=== PATIENT | female | born 1950 | race Caucasian/White ===

== ENCOUNTER 2018-10-31 09:41 | Emergency (ER) | payer OTHER, MEDICAID ==
[2018-10-31] MEDS ORDERED: ONDANSETRON 4 MG/2 ML VIAL IVP ONE (10:08)
[2018-10-31] MEDS ORDERED: NS 1,000 ML IV ONE (10:08)
[2018-10-31 10:16] LABS: PLATELET COUNT 244 10^3/uL (150-400)
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
[2018-10-31] MEDS ORDERED: ACETAMINOPHEN 325 MG TAB PO ONE (10:54)
[2018-10-31 12:06] VITALS: BP 157/86
== END 2018-10-31 12:07 | disposition home or self-care (01) ==
DX: E86.0 Dehydration (principal); R11.2 Nausea with vomiting, unspecified; K29.00 Acute gastritis without bleeding; R51 Headache; E11.9 Type 2 diabetes mellitus without complications
CPT/HCPCS: 96374; 99284; J2405

== ENCOUNTER 2018-11-02 09:28 | Inpatient (IN) | payer OTHER, MEDICAID ==
[2018-11-02] MEDS ORDERED: ONDANSETRON 4 MG/2 ML VIAL ONE ×2 (09:44→13:07)
[2018-11-02] MEDS ORDERED: NS 1,000 ML IV ONE ×4 (09:49→11:18)
[2018-11-02] MEDS ORDERED: ONDANSETRON 4 MG/2 ML VIAL IVP ONE (09:49)
[2018-11-02] MEDS ORDERED: METOCLOPRAMIDE 10 MG/2 ML VIAL IVP ONE (09:53)
[2018-11-02] MEDS ORDERED: FAMOTIDINE 20 MG/NACL 50 ML IV ONE (09:53)
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
[2018-11-02 10:07] LABS: PLATELET COUNT 278 10^3/uL (150-400)
[2018-11-02] MEDS ORDERED: INSULIN REGULAR HUMAN 100 UNIT, COSIGN. REQUIRED 1 EA in NS 100 ML IV ONE (10:18)
[2018-11-02] MEDS ORDERED: NS 500 ML IV ONE ×2 (10:30)
[2018-11-02] MEDS ORDERED: D10W 1,000 ML IV SCH (10:30)
[2018-11-02] MEDS ORDERED: RN:ENTER POTASSIUM ICU PROTOCOL ON WORKLIST MISC ONE (10:30)
[2018-11-02] MEDS ORDERED: NS 1,000 ML IV SCH ×2 (10:30→14:00)
[2018-11-02] MEDS ORDERED: D50W 25 GM/50 ML SYR IVP PRN ×2 (10:30→19:24)
[2018-11-02] MEDS ORDERED: IOPAMIDOL (ISOVUE-300) 100 ML BTL ONE ×2 (10:32→14:56)
[2018-11-02] MEDS: POTASSIUM Cl (KCl) 100 ML IV SCH ×6 (10:38→23:29)
[2018-11-02] MEDS ORDERED: INSULIN REGULAR HUMAN 100 UNIT in NS 100 ML IV SCH ×2 (14:00→14:30)
--- NOTE | 2018-11-02 14:23 | PDGENHP ---
History and Physical - Chief Complaint Nausea - History of Present Illness I was asked by Dr. Jolie Gutierrez of [facility] to evaluate this patient for ICU care and lung mass. Trav is a very pleasant 68-year-old female with type 2 diabetes who re-presented to emergency department with nausea vomiting and headaches. She reports and ability to take p.o. And elevated blood glucoses although she has not recently checked in. She recent prescribed a prescription for glyburide. She is a [place] patient, was treated a couple months ago for pneumonia. She denies active respiratory symptoms chest pain, fevers, chills, cough. She is a nonsmoker History Information - Allergies/Home Medication List Allergies/Adverse Reactions: erythromycin base Allergy (Verified 11/02/18 09:38) nitrous oxide Allergy (Verified 11/02/18 09:38) Home Medications: metFORMIN HCL [Metformin HCl ER] 500 mg PO BIDMEAL 10/31/18 [Last Taken 07:00] I have personally reviewed and updated: family history, medical history, social history, surgical history - Past Medical History Additional medical history: Type 2 diabetes, - Surgical History Reports: no pertinent surgical hx - Family History Additional family history: No history of lung mass - Social History Smoking Status: Never smoked Review of Systems Review of Systems: ROS: 10pt was reviewed & negative except for what was stated in HPI & below Physical Exam Physical Exam: Temp Pulse Resp BP Pulse Ox 37.7 C 105 H 16 154/75 H 97 11/02/18 13:16 11/02/18 14:00 11/02/18 14:00 11/02/18 14:00 11/02/18 14:00 Lab Data & Imaging Review 11/02/18 09:45 11/02/18 11:15 WBC 18.69 10^3/uL (3.80-9.50) H 11/02/18 09:45 RBC 5.60 10^6/uL (4.18-5.33) H 11/02/18 09:45 Hgb 15.8 g/dL (12.6-16.3) 11/02/18 09:45 POC Hgb 16.3 gm/dL (12.6-16.3) 11/02/18 09:51 Hct 44.2 % (38.0-47.0) 11/02/18 09:45 POC Hct 48 % (38-47) H 11/02/18 09:51 MCV 78.9 fL (81.5-99.8) L 11/02/18 09:45 MCH 28.2 pg (27.9-34.1) 11/02/18 09:45 MCHC 35.7 g/dL (32.4-36.7) 11/02/18 09:45 RDW 14.0 % (11.5-15.2) 11/02/18 09:45 Plt Count 278 10^3/uL (150-400) 11/02/18 09:45 MPV 12.3 fL (8.7-11.7) H 11/02/18 09:45 Neut % (Auto) Not Reported 11/02/18 09:45 Lymph % (Auto) Not Reported 11/02/18 09:45 [place] % (Auto) Not Reported 11/02/18 09:45 Eos % (Auto) Not Reported 11/02/18 09:45 Baso % (Auto) Not Reported 11/02/18 09:45 Nucleat RBC Rel Count Not Reported 11/02/18 09:45 Absolute Neuts (auto) Not Reported 11/02/18 09:45 Absolute Lymphs (auto) Not Reported 11/02/18 09:45 Absolute Monos (auto) Not Reported 11/02/18 09:45 Absolute Eos (auto) Not Reported 11/02/18 09:45 Absolute Basos (auto) Not Reported 11/02/18 09:45 Absolute Nucleated RBC Not Reported 11/02/18 09:45 Immature Gran % Not Reported 11/02/18 09:45 Seg Neutrophils % 89.0 % 11/02/18 09:45 Band Neutrophils % 0.0 % 11/02/18 09:45 Lymphocytes % 7.0 % 11/02/18 09:45 Monocytes % 4.0 % 11/02/18 09:45 Eosinophils % 0.0 % 11/02/18 09:45 Basophils % 0.0 % 11/02/18 09:45 Metamyelocytes % 0.0 % 11/02/18 09:45 Myelocytes % 0.0 % 11/02/18 09:45 Promyelocytes % 0.0 % 11/02/18 09:45 Blast Cells % 0.0 % 11/02/18 09:45 Immature Gran # Not Reported 11/02/18 09:45 Absolute Seg Neuts 16.06 10^3/uL (1.70-6.50) H 11/02/18 09:45 Absolute Band Neuts 0.00 10^3/uL (0.00-0.70) 11/02/18 09:45 Absolute Lymphocytes 1.26 10^3/uL (1.00-3.00) 11/02/18 09:45 Absolute Monocytes 0.72 10^3/uL (0.30-0.80) 11/02/18 09:45 Absolute Eosinophils 0.00 10^3/uL (0.03-0.40) L 11/02/18 09:45 Absolute Basophils 0.00 10^3/uL (0.02-0.10) L 11/02/18 09:45 Absolute Metamyelocyte 0.00 10^3/mL (0.00-0.00) 11/02/18 09:45 Absolute Myelocytes 0.00 10^3/mL (0.00-0.00) 11/02/18 09:45 Absolute Promyelocytes 0.00 10^3/uL (0.00-0.00) 11/02/18 09:45 Absolute Plasma Cells 0.00 10^3/uL (0.00-0.00) 11/02/18 09:45 Nucleated RBCs 0 /100 WBC (0-0) 11/02/18 09:45 RBC/WBC/PLT Morphology NORMAL (NORMAL) 11/02/18 09:45 Absolute Blast Cells 0.00 10^3/uL (0.00-0.00) 11/02/18 09:45 Plasma Cells % 0.0 % 11/02/18 09:45 Platelet Estimate ADEQUATE (ADEQ) 11/02/18 09:45 Puncture Site VENOUS 11/02/18 14:00 Patient Temperature 37.6 DEGREES 11/02/18 14:00 VBG pH 7.38 (7.31-7.42) 11/02/18 14:00 VBG HCO3 17 mEQ/L (22-26) L 11/02/18 14:00 VBG Total CO2 18 mEq/L (21-27) L 11/02/18 14:00 VBG O2 Saturation 88 % (65-75) H 11/02/18 14:00 VBG Base Excess -6.2 mEq/L (-2.5-2.5) L 11/02/18 14:00 Mixed VBG pCO2 30 mmHg (40-44) L 11/02/18 14:00 Mixed VBG pO2 52 mmHG (35-40) H 11/02/18 14:00 POC Sodium 134 mEq/L (135-145) L 11/02/18 09:51 Sodium 134 mEq/L (135-145) L 11/02/18 11:15 POC Potassium 3.7 mEq/L (3.3-5.0) 11/02/18 09:51 Potassium 4.1 mEq/L (3.5-5.2) 11/02/18 11:15 POC Chloride 99 mEq/L (97-110) 11/02/18 09:51 Chloride 101 mEq/L (97-110) 11/02/18 11:15 Carbon Dioxide 16 mEq/l (22-31) L 11/02/18 11:15 POC Total CO2 18 mEq/L (22-31) L 11/02/18 09:51 Anion Gap 17 mEq/L (6-14) H 11/02/18 11:15 POC BUN 29 mg/dL (7-23) H 11/02/18 09:51 BUN 25 mg/dL (7-23) H 11/02/18 11:15 Creatinine 0.6 mg/dL (0.6-1.0) 11/02/18 11:15 POC Creatinine 0.5 mg/dL (0.6-1.0) L 11/02/18 09:51 Estimated GFR > 60 11/02/18 11:15 Glucose 444 mg/dL (70-100) H 11/02/18 11:15 POC Glucose 321 mg/dL (70-100) H 11/02/18 12:41 Calcium 9.7 mg/dL (8.5-10.4) 11/02/18 11:15 Total Bilirubin 1.4 mg/dL (0.1-1.4) 11/02/18 09:45 Conjugated Bilirubin 0.4 mg/dL (0.0-0.5) 11/02/18 09:45 Unconjugated Bilirubin 1.0 mg/dL (0.0-1.1) 11/02/18 09:45 AST 9 IU/L (14-46) L 11/02/18 09:45 ALT 27 IU/L (9-52) 11/02/18 09:45 Alkaline Phosphatase 93 IU/L (38-126) 11/02/18 09:45 Total Protein 7.5 g/dL (6.3-8.2) 11/02/18 09:45 Albumin 4.4 g/dL (3.5-5.0) 11/02/18 09:45 Lipase 68 IU/L (23-300) 11/02/18 09:45 Beta-Hydroxybutyrate 4.45 mmol/L (0.02-0.27) H 11/02/18 11:15 Urine Color PALE YELLOW 11/02/18 10:00 Urine Appearance CLEAR 11/02/18 10:00 Urine pH 6.0 (5.0-7.5) 11/02/18 10:00 Ur Specific [place] 1.027 (1.002-1.030) 11/02/18 10:00 Urine Protein NEGATIVE (NEGATIVE) 11/02/18 10:00 Urine Ketones 2+ (NEGATIVE) H 11/02/18 10:00 Urine Blood NEGATIVE (NEGATIVE) 11/02/18 10:00 Urine Nitrate NEGATIVE (NEGATIVE) 11/02/18 10:00 Urine Bilirubin NEGATIVE (NEGATIVE) 11/02/18 10:00 Urine Urobilinogen NEGATIVE EU (0.2-1.0) 11/02/18 10:00 Ur Leukocyte Esterase NEGATIVE (NEGATIVE) 11/02/18 10:00 Urine RBC 1-3 /hpf (0-3) 11/02/18 10:00 Urine WBC 1-3 /hpf (0-3) 11/02/18 10:00 Ur Epithelial Cells TRACE /lpf (NONE-1+) 11/02/18 10:00 Urine Glucose 3+ (NEGATIVE) H 11/02/18 10:00 Visualized and Interpreted imaging results: Yes Interpretation: CT abdomen pelvis with pleural base consolidation in left lower lobe. No other ground-glass or infiltrates Assessment & Plan Assessment: 68-year-old female admitted with mild DKA and leukocytosis and found to have a pleural based lung mass concerning for infection. Imaging findings may be residual changes from recent pneumonia. However given diabetes and relative immunocompromise state she has a risk for invasive fungal infections. Given leukocytosis and diabetes she warrants further workup. # lung mass. Differential as above. # DKA # anion gap metabolic acidosis # leukocytosis. stress response vs infection Plan: PLAN # dedicated CT chest with contrast # B,D glucan, and aspergillus galactomannan # will plan on performing bronchoscopy with BAL tomorrow # avoid antibiotics until after bronchoscopy unless patient decompensates # DKA care
[2018-11-02] MEDS ORDERED: D10W 1,000 ML IV PRN (14:30)
--- NOTE | 2018-11-02 14:58 | GHP ---
[f rep st] HISTORY AND PHYSICAL DATE OF ADMISSION: 11/02/2018 CHIEF COMPLAINT: Nausea and vomiting. HISTORY: Cyndy is a 68-year-old female with type 2 diabetes only on Metformin presenting with 2 days of nausea and vomiting. The vomiting started on Thursday night. She was seen in urgent care an d 1 previous visit in the ER and was sent home. She re-presented today and now appears to be in DKA. Now on an IV insulin drip and admitting to ICU. She describes pain in her pelvis radiating down to her knees. Her CT scan of the abdomen was negative, but did incidentally catch a possible pulmonary abscess in her lung. The patient was diagnosed with pneumonia in August. She took a course of antibiotics. Since that time, she has lost a considerable amount of weight. She blames the weight loss on decreased appetite due to these antibiotics. She, otherwise, feels like she has had a full recovery from the pneumonia . She never had a followup chest x-ray as she was seen in urgent care, they listened to her lungs an d they sounded clear and told her she was fine. She occasionally will have night sweats. PAST MEDICAL HISTORY: Diabetes type 2 diagnosed 2006. MEDICATIONS: Please see computerized record for full detailed list. ALLERGIES: To erythromycin. SOCIAL HISTORY: Never been a smoker. She lives alone with her cat. No alcohol. 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 REVIEW OF SYSTEMS: A complete review of systems was obtained and negative regarding constitutional, HEENT, GI, pulmonary, cardiovascular, , hematology, skin, musculoskeletal, endocrine, and psychiatr ic, except for positives and negatives as in HPI. FAMILY HISTORY: Reviewed and noncontributory to presenting complaint. PHYSICAL EXAMINATION: GENERAL: Well-developed, well-nourished female, in no distress. VITAL SIGNS: Temperature is 36.7, pulse 108, blood pressure 150/106, saturating 97% on room air. EYES: Normal c onjunctivae. Pupils are equal, round, react light. ENT: Normal ears and nose. Hearing intact. No rmal teeth. Oropharynx moist. NECK: Trachea midline. No thyromegaly. CHEST: Normal respiratory effort. Lungs are clear to auscultation bilaterally. CARDIOVASCULAR: Regular rate and rhythm. No murmur. No extremity edema. ABDOMEN: Soft, nontender. No hepatosplenomegaly. SKIN: Warm, dry, a nd intact without rash. MUSCULOSKELETAL: No cyanosis or clubbing. Strength is 5/5 upper and lower extremities. NEUROLOGIC: Cranial nerves intact. Normal sensation to light touch. PSYCH: Alert an d oriented x3. Normal affect. Normal judgment. Normal memory. LABORATORY DATA: White count 18.69, hematocrit 44.2, platelets 278. Sodium 134, potassium 4.1, chlo ride 101, bicarb 16. Anion gap on presentation was 21. BUN 25, creatinine 0.6, glucose 521. Beta h ydroxybutyrate is 4.45. CT scan of the abdomen shows a left lower lobe pleural-based mass, may represent pneumonia with centr al necrosis or intrapulmonary abscess versus loculated empyema. Malignancy not ruled out. ASSESSMENT/PLAN: 1. Diabetic ketoacidosis. She is now on an IV insulin drip and will continue per DKA protocol with IV fluid and serial labs. We will likely need to discharge her on insulin injections and can be clar ified as an outpatient whether or not she may have an element of type 1 diabetes. 2. Pulmonary abscess. I reviewed her CT scan with Dr. Jade and Pulmonary Medicine will see her in consultation. He is recommending a full dedicated CT chest. He thinks infection is more likely t bermudez malignancy. He is recommending a prolonged course of antibiotics and then repeat CT scan. We wi ll also ask Infectious Disease to see her in consultation to assist with management. We will make he r n.p.o. after midnight for possible bronch in the morning. We will check blood cultures and an HIV. ADMISSION STATUS: We will admit to inpatient. She is critically ill on presentation and meets inpat ient criteria. CODE STATUS: Full. DVT PROPYLAXIS: We will prescribe Lovenox, but we will hold until after bronchoscopy. /[id number]/MODL
[2018-11-02] MEDS ORDERED: PROTOCOL POTASSIUM 1 DOSE MISC PRN (15:27)
--- NOTE | 2018-11-02 15:39 | PDMN ---
Medical Necessity Medical necessity: [facility] M130 diabetes; Diabetic ketoacidosis that requires inpatient management as indicated by ALL of the following: -Hyperglycemia (eg, plasma glucose greater than 200 mg/dL -- ( 521 ). -Ketonuria or ketonemia (eg , serum beta hydroxybutyrate greater than 3 mmol/L)- ( 4.45 ). -Acidosis (eg, arterial or venous pH less than 7.30)- (-VBG 7.24). -Inpatient management appropriate as indicated by 1 or more of the following. -Anion gap greater than 12-- (21). . Pt on IV insulin drip per DKA protocol. IV fluids and serial labs. also with pulm abscess noted on CT. consult pend.
[2018-11-02] MEDS: ACETAMINOPHEN 325 MG TAB PO PRN (15:40)
[2018-11-02] MEDS: ONDANSETRON 4 MG/2 ML VIAL IVP PRN (18:30)
[2018-11-02] MEDS: INSULIN GLARGINE 100 UNITS/ML UNIT SC SCH (18:59)
[2018-11-02] MEDS ORDERED: POTASSIUM CL 20 MEQ TAB PO ONE (19:00)
[2018-11-02] MEDS: INSULIN LISPRO 100 UNIT/ML SC SCH (21:03)
[2018-11-03] MEDS: ONDANSETRON 4 MG/2 ML VIAL IVP PRN (02:12)
[2018-11-03] MEDS ORDERED: hydrALAZINE 25 MG TAB PO PRN ×2 (04:05→04:13)
[2018-11-03] MEDS ORDERED: hydrALAZINE 20 MG/ML VIAL IVP PRN (04:15)
[2018-11-03 05:43] LABS: PLATELET COUNT 244 10^3/uL (150-400)
[2018-11-03] MEDS: ACETAMINOPHEN 325 MG TAB PO PRN (06:28)
[2018-11-03 07:30] LABS: HIV TYPE 1 AND 2 NEGATIVE (NEGATIVE)
[2018-11-03] MEDS ORDERED: INSULIN LISPRO 100 UNIT/ML SC SCH (08:00)
[2018-11-03] MEDS ORDERED: PROTOCOL POTASSIUM 1 DOSE MISC PRN (08:17)
[2018-11-03] MEDS ORDERED: POTASSIUM CL 10 MEQ TAB PO ONE ×2 (08:20→11:45)
[2018-11-03] MEDS ORDERED: POTASSIUM Cl (KCl) 40 MEQ in NS 1,000 ML IV ONE (09:00)
[2018-11-03] MEDS ORDERED: POTASSIUM CL 20 MEQ TAB PO ONE (09:00)
[2018-11-03] MEDS ORDERED: ENOXAPARIN 40 MG/0.4 ML SYR SC SCH (09:00)
[2018-11-03] MEDS: INSULIN LISPRO 100 UNIT/ML SC SCH ×3 (09:17→18:22)
[2018-11-03] MEDS: INSULIN REGULAR HUMAN 100 UNIT in NS 100 ML IV SCH ×2 (09:18→14:35)
[2018-11-03] MEDS: INSULIN GLARGINE 100 UNITS/ML UNIT SC SCH (09:55)
--- NOTE | 2018-11-03 10:22 | PDINTPN ---
Osteopathic Neurologist Progress Note Assessment/Plan: 68-year-old female admitted with mild DKA and leukocytosis and found to have a pleural based lung mass concerning for infection. Imaging findings may be residual changes from recent pneumonia. However given diabetes and relative immunocompromise state she has a risk for invasive fungal infections. Given leukocytosis and diabetes she warrants further workup. Malignancy is less likely. # lung mass. Differential as above. Patient declines inpatient bronchoscopy # DKA # anion gap metabolic acidosis # hypokalemia, severe # leukocytosis. stress response vs infection Plan: PLAN # declines inpatient bronchoscopy and other diagnostic interventions # given interval improvement in leukocytosis without antibiotics suggest against antibiotics or antifungals without definitive diagnosis or clinical worsening # suggest repeat CT chest in 4-6 weeks as outpatient to evaluate for interval change # follow-up B,D glucan, and aspergillus galactomannan # aggressive potassium repletion # will need to cautiously continue insulin drip per DKA # patient to follow up with Munir as an outpatient Subjective: Gap re opened yesterday, worsening hypokalemia, insulin gtt restarted. Patient declines bronchoscopy stating that she has too much to do today. We discussed the risks, benefits, of not pursuing a definitive diagnosis of her lung mass. Objective: Vital Signs Temp Pulse Resp BP Pulse Ox 36.9 C 97 18 179/79 H 98 11/03/18 08:00 11/03/18 08:00 11/03/18 08:00 11/03/18 08:00 11/03/18 08:00 Laboratory Results 11/03/18 05:30 11/02/18 11/03/18 11/04/18 05:59 05:59 05:59 Intake Total 2963.8 Output Total 1400 900 Balance 1563.8 -900 Physical Exam - Physical Exam General Appearance: no apparent distress, cachetic EENT: PERRL/EOMI, normal ENT inspection Neck: non-tender, full range of motion, supple Respiratory: chest non-tender, lungs clear, normal breath sounds Cardiac/Chest: normal peripheral pulses, regular rate, rhythm, No edema Abdomen: non-tender, soft, No distended, No guarding Back: Normal inspection Skin: normal color, warm/dry, No cyanosis, No diaphoresis Extremities: normal range of motion, non-tender, normal inspection Neuro/Psych: no motor/sensory deficits, alert, other (Odd affect) ICD10 Worksheet Patient Problems: Problems Problem Status Onset DKA (diabetic ketoacidoses) Acute Nausea and vomiting Acute Dehydration Acute Vomiting Acute
[2018-11-03] MEDS: POTASSIUM Cl (KCl) 100 ML IV SCH ×6 (11:22→22:30)
[2018-11-03] MEDS ORDERED: NS 1,000 ML IV SCH (11:45)
[2018-11-03] MEDS: ENOXAPARIN 40 MG/0.4 ML SYR SC SCH (11:57)
[2018-11-03] MEDS ORDERED: POTASSIUM Cl (KCl) 40 MEQ in NS 1,000 ML IV SCH (12:00)
[2018-11-03] MEDS ORDERED: LR 1,000 ML IV SCH (13:00)
[2018-11-03] MEDS ORDERED: D5W NS W/ 20 KCl/L 1,000 ML IV SCH (16:30)
[2018-11-03] MEDS: LORazepam 1 MG TAB PO PRN ×2 (16:36→21:14)
--- NOTE | 2018-11-03 21:29 | HOSPPROG ---
Hospitalist Progress Note Assessment/Plan: * DKA -difficult case - gap re-opened and back on insulin gtt -continue IV insulin, D5NS and serial chem7 * Hypokalemia - severe -replete * Pleural based mass vs infection (necrosis vs. abscess vs. empyema) -refused bronch -consider empiric antibiotics * Anxiety -ativan prn Subjective: Very anxious to leave, refused bronch Objective: Vital Signs Temp Pulse Resp BP Pulse Ox 37.3 C 110 H 25 H 166/97 H 98 11/03/18 20:16 11/03/18 20:16 11/03/18 20:16 11/03/18 20:16 11/03/18 20:16 Laboratory Results 11/03/18 05:30 11/03/18 20:07 11/02/18 11/03/18 11/04/18 05:59 05:59 05:59 Intake Total 2963.8 2064 Output Total 1400 2500 Balance 1563.8 -436 CT chest - pleural based mass as above d/w dr núñez regarding DKA tx - Physical Exam Constitutional: no apparent distress, appears nourished, not in pain Cardiovascular: regular rate and rhythym, no murmur, rub, or gallop Respiratory: no respiratory distress, no rales or rhonchi, clear to auscultation Gastrointestinal: normoactive bowel sounds, soft, non-tender abdomen, no palpable masses Skin: no rashes or abrasions, no fluctuance, no induration Neurologic: AAOx3, sensation intact bilaterally Psychiatric: interacting appropriately, not anxious, not encephalopathic, thought process linear ICD10 Worksheet Patient Problems: Problems Problem Status Onset DKA (diabetic ketoacidoses) Acute Nausea and vomiting Acute Dehydration Acute Vomiting Acute
[2018-11-03] MEDS ORDERED: IBUPROFEN 600 MG TAB PO ONE (22:39)
[2018-11-03] MEDS: D10W 1,000 ML IV SCH (23:33)
[2018-11-04] MEDS: LORazepam 1 MG TAB PO PRN ×2 (01:33→06:47)
[2018-11-04 04:43] LABS: PLATELET COUNT 279 10^3/uL (150-400)
[2018-11-04] MEDS: INSULIN REGULAR HUMAN 100 UNIT in NS 100 ML IV SCH (05:08)
[2018-11-04] MEDS: POTASSIUM Cl (KCl) 100 ML IV SCH ×7 (06:33→23:25)
[2018-11-04] MEDS ORDERED: POTASSIUM CL 10 MEQ TAB PO ONE (07:46)
[2018-11-04] MEDS ORDERED: POTASSIUM CL 20 MEQ TAB PO ONE (08:13)
--- NOTE | 2018-11-04 08:19 | PDINTPN ---
High Pressure Firer Progress Note Assessment/Plan: 68-year-old female admitted with mild DKA and leukocytosis and found to have a pleural based lung mass concerning for infection. Imaging findings may be residual changes from recent pneumonia. However given diabetes and relative immunocompromise state she has a risk for invasive fungal infections. Given leukocytosis and diabetes she warrants further workup. Malignancy is less likely. # lung mass. Differential as above. Aspergillus galactomannan negative, B,D glucan negative. Patient declines inpatient bronchoscopy # DKA, gap reopened due to poor p.o. Intake with a component starvation ketoacidosis # encephalopathy. Multifactorial. Mild underlying cognitive impairment plus critical illness plus benzodiazepine # hyponatremia. Multifactorial. # anion gap metabolic acidosis # hypokalemia, severe # leukocytosis. stress response vs infection PLAN # declines inpatient bronchoscopy and other diagnostic interventions # given interval improvement in leukocytosis without antibiotics suggest against antibiotics or antifungals without definitive diagnosis or clinical worsening # suggest repeat CT chest in 4-6 weeks as outpatient to evaluate for interval change # change IV fluids from D10 to D5 NS # increase glargine stop, stop drip # repeat BMP 4 hr after stopping drip # aggressive potassium repletion # avoid benzos # patient to follow up with Munir as an outpatient 11/04/18 15:33 Subjective: back on insulin overnight, ativan early this AM, still with hypokalemia, continues to decline work up of lung mass. tolerating clear liquid diet. No fevers, chills Objective: Vital Signs Temp Pulse Resp BP Pulse Ox 36.5 C 98 24 H 172/94 H 93 11/04/18 08:00 11/04/18 08:00 11/04/18 06:00 11/04/18 08:00 11/04/18 08:00 Laboratory Results 11/04/18 04:20 11/04/18 04:20 11/03/18 11/04/18 11/05/18 05:59 05:59 05:59 Intake Total 2963.8 3607.6 Output Total 1400 3500 425 Balance 1563.8 107.6 -425 Physical Exam - Physical Exam General Appearance: cachetic, other (Somnolent arousable) EENT: normal ENT inspection, pharynx normal, No scleral icterus (L) Respiratory: chest non-tender, lungs clear, normal breath sounds Cardiac/Chest: normal peripheral pulses, regular rate, rhythm, No edema Abdomen: normal bowel sounds, non-tender Back: Normal inspection Skin: normal color, warm/dry, No cyanosis Extremities: normal range of motion, non-tender Neuro/Psych: other (Somnolent, arousable, confused poorly following commands, no focal deficits) ICD10 Worksheet Patient Problems: Problems Problem Status Onset DKA (diabetic ketoacidoses) Acute Nausea and vomiting Acute Dehydration Acute Vomiting Acute
[2018-11-04] MEDS: ENOXAPARIN 40 MG/0.4 ML SYR SC SCH (08:32)
[2018-11-04] MEDS ORDERED: PROTOCOL K PHOSPHATE 1 DOSE IV PRN (08:33)
[2018-11-04] MEDS: D10W 1,000 ML IV SCH (08:38)
[2018-11-04] MEDS ORDERED: K PHOS 20 MMOL in D5W 250 ML IV ONE (09:00)
[2018-11-04] MEDS: INSULIN GLARGINE 100 UNITS/ML UNIT SC SCH (10:09)
[2018-11-04] MEDS ORDERED: INSULIN GLARGINE 100 UNITS/ML UNIT SC ONE (10:33)
[2018-11-04] MEDS: INSULIN LISPRO 100 UNIT/ML SC SCH ×4 (10:51→18:33)
[2018-11-04] MEDS ORDERED: POTASSIUM Cl (KCl) 40 MEQ in D5W NS 1,000 ML IV SCH (11:30)
--- NOTE | 2018-11-04 13:19 | ASMTCASEMG ---
Living Arrangements What is your living Answers: Alone arrangement? Who do you live with? Type Of Residence What kind of residence do Answers: Apartment you live in? Discharge Plan Comments Coordination Status Comments Notes: Patient is a 68yo single female with Type II diabetes only on Metformin presenting with 2 days of nausea and vomiting. Patient has been admitted for diabetic ketoacidosis, pulmonary abscess. Patient lives at [facility] in independent living. PT/OT have been ordered for the patient. D/C plan TBD.CM will follow. Date Signed: 11/04/2018 01:18 PM Electronically Signed By:Randa Durbin LCSW
--- NOTE | 2018-11-04 13:28 | ASMTCMCOM ---
CM Note CM Note Notes: Spoke with [facility] who called about patient's progress. They would like to stay informed since the patient is in independent living and may need a higher level of care. Roma ([phone]) is the resident coordinator and public health social worker and contact at [facility]. PT is recommending home health care. Patient has [place] insurance and so we will need to coordinate with [facility] ([phone]) home health care. Patient is delirious today so the conversation will have to happen at a later date. CM will follow. Date Signed: 11/04/2018 01:27 PM Electronically Signed By:Randa Durbin LCSW
--- NOTE | 2018-11-04 14:34 | HOSPPROG ---
Hospitalist Progress Note Assessment/Plan: * DKA -difficult case - gap re-opened and back on insulin gtt -try again to transition to SQ Lovenox -d/w patient's close friend - insulin recommended in past and she refused * Hypokalemia - severe -replete * Pleural based mass vs infection (necrosis vs. abscess vs. empyema) -refused bronch -consider empiric antibiotics * Toxic/metabolic encephalopathy -extreme agitation last night - got ativan - now sedated -per friend she has undiagnosed slight schizophrenia -very paranoid - frequently refuses medical recommendations * Urinary retention - >1L in bladder -now with baez * HTN -start lisinopril Subjective: Very sedated but arousable Objective: Vital Signs Temp Pulse Resp BP Pulse Ox 36.4 C 108 H 22 H 177/99 H 99 11/04/18 12:00 11/04/18 14:00 11/04/18 14:00 11/04/18 14:00 11/04/18 14:00 Laboratory Results 11/04/18 04:20 11/04/18 09:30 11/03/18 11/04/18 11/05/18 05:59 05:59 05:59 Intake Total 2963.8 3607.6 Output Total 1400 3500 1550 Balance 1563.8 107.6 -[address] Jade regarding ICU care tele reivewed - NSR - Physical Exam Constitutional: no apparent distress, appears nourished, not in pain Cardiovascular: regular rate and rhythym, no murmur, rub, or gallop Respiratory: no respiratory distress, no rales or rhonchi, clear to auscultation Gastrointestinal: normoactive bowel sounds, soft, non-tender abdomen, no palpable masses Neurologic: No AAOx3 Psychiatric: encephalopathic, poor insight, poor judgement, poor memory, No interacting appropriately, No agitated ICD10 Worksheet Patient Problems: Problems Problem Status Onset DKA (diabetic ketoacidoses) Acute Nausea and vomiting Acute Dehydration Acute Vomiting Acute
[2018-11-04] MEDS ORDERED: hydrALAZINE 20 MG/ML VIAL IVP PRN (14:37)
[2018-11-04] MEDS ORDERED: IBUPROFEN 600 MG TAB PO PRN (14:43)
[2018-11-04] MEDS: ACETAMINOPHEN 325 MG TAB PO PRN (20:21)
[2018-11-05] MEDS ORDERED: OLANZapine 2.5 MG TAB PO ONE ×2 (02:03→04:33)
[2018-11-05] MEDS ORDERED: POTASSIUM CL 10 MEQ TAB PO ONE (07:25)
[2018-11-05 07:48] LABS: PLATELET COUNT 302 10^3/uL (150-400)
[2018-11-05] MEDS: LISINOPRIL 10 MG TAB PO SCH (08:11)
[2018-11-05] MEDS: INSULIN GLARGINE 100 UNITS/ML UNIT SC SCH (08:11)
[2018-11-05] MEDS: ENOXAPARIN 40 MG/0.4 ML SYR SC SCH (08:11)
[2018-11-05] MEDS: INSULIN LISPRO 100 UNIT/ML SC SCH (08:11)
[2018-11-05] MEDS ORDERED: INSULIN GLARGINE 100 UNITS/ML UNIT SC ONE (08:23)
--- NOTE | 2018-11-05 08:28 | PDINTPN ---
Pharmacist Per Diem Progress Note Assessment/Plan: ERROR. disregard Objective: Vital Signs Temp Pulse Resp BP Pulse Ox 36.3 C 127 H 48 H 194/113 H 98 11/05/18 07:29 11/05/18 07:29 11/05/18 07:29 11/05/18 07:29 11/05/18 07:29 Laboratory Results 11/05/18 05:15 11/05/18 05:15 11/04/18 11/05/18 11/06/18 05:59 05:59 05:59 Intake Total 3607.6 2896.4 Output Total 3500 4455 120 Balance 107.6 -1558.6 -120 ICD10 Worksheet Patient Problems: Problems Problem Status Onset DKA (diabetic ketoacidoses) Acute Leukocytosis Acute Nausea and vomiting Acute Dehydration Acute Vomiting Acute
[2018-11-05] MEDS ORDERED: HALOPERIDOL LACT 5 MG/ML INJ IVP PRN ×2 (09:55→10:19)
[2018-11-05] MEDS ORDERED: LORazepam 2 MG/ML INJ IVP ONE ×2 (09:56→13:30)
[2018-11-05] MEDS ORDERED: D50W 25 GM/50 ML SYR IVP PRN (09:58)
[2018-11-05] MEDS ORDERED: QUEtiapine FUMARATE 25 MG TAB PO SCH ×2 (11:15→21:00)
[2018-11-05] MEDS: INSULIN REGULAR HUMAN 100 UNIT/ML UNIT SC SCH ×3 (11:48→23:09)
[2018-11-05] MEDS ORDERED: AMPICILLIN/SULBACTAM 3 GM in NS 100 ML IV SCH (12:00)
[2018-11-05] MEDS ORDERED: LORazepam 2 MG/ML INJ ONE (13:07)
--- NOTE | 2018-11-05 13:23 | CPEKG ---
Test Reason : OPEN Blood Pressure : / mmHG Vent. Rate : 125 BPM Atrial Rate : 125 BPM P-R Int : 126 ms QRS Dur : 079 ms QT Int : 337 ms P-R-T Axes : 051 051 043 degrees QTc Int : 486 ms Sinus tachycardia Low voltage, extremity leads Confirmed by Mo Johnson ([id number]) on 11/05/2018 1:23:21 PM Referred By: Gabrielle Tran Confirmed By:Mo Johnson
[2018-11-05] MEDS ORDERED: PROPOFOL/EMULSION 1,000 MG/100 ML BOTTLE IV ONE (13:27)
[2018-11-05] MEDS ORDERED: levETIRAcetam 1000MG/NACL 100 ML IV ONE (13:30)
[2018-11-05] MEDS ORDERED: PHENYLEPHRINE HCL 100 MCG/ML SYR ONE (13:51)
--- NOTE | 2018-11-05 13:59 | GCON ---
[f rep st] CONSULTATION STAT NEUROLOGY CONSULTATION REFERRING PHYSICIAN: Jolie Gutierrez MD The patient is a 68-year-old lady who was admitted to the hospital on November 02 for nausea and vomiting, and was found to be in diabetic ketoacidosis. She has been treated in ICU appropriately for this condition. However, she has developed a progressive encephalopathy over the last day or 2 ago with more agitation and focal symptoms now. Specifically, she haslost awareness with continuous versive head movements to the right and eye movements to the right, which will be described below. She also has noted some generalized stiffening. I came to the ICU immediately and provided critical care evaluation, treatment and stabilization. For past history social history, family history, home medications, and allergies , see Dr. Gutierrez's H and P. PHYSICAL EXAMINATION: VITAL SIGNS: 170s over 90. She is afebrile at 36.3. Heart rate, she is tachycardic in the 100s on exam. NEUROLOGIC: The patient had her eyes open when I initially evaluated her with nystagmoid eye movements to the right with versive/tonic rotation of the head to the right as well. She had generalized stiffening of all 4 extremities with difficulty with passive flexion of the joints. We ordered a stat dose of IV lorazepam 2 mg and administered the medication in our presence. After this medication was given, around 5 minutes later, she had resolution of the generalized stiffening and her eyes came closer to midline with some jerky multidirectional nystagmoid movements that persisted. IMPRESSION: 1. Diabetic ketoacidosis. 2. Encephalopathy. 3. Query seizures. PLAN: The patient's clinical history and exam may be consistent with symptomatic focal seizures in the setting of diabetic ketoacidosis. We are certainly considering the condition of status epilepticus as well. She did respond to an IV dose of benzodiazepine, as noted above, and she is being loaded with 1 g of IV Keppra and will be given 1 g q.12 of IV Keppra. There is some uncertainty around her wishes regarding intubation and resuscitation that we are clarifying with her Medical Power of Analysis Lead. Initially, my recommendation is transfer to a facility with continuous EEG monitoring, but I am made aware that she is not stable enough to transfer now. Therefore, we will have to empirically treat her for seizures, as above, with q.12 1 g of Keppra and p.r.n. IV benzodiazepine; along with seizure precautions. In addition, we are considering EPIDEMIOLOGIST infection and she will be covered appropriately with antimicrobial for possible bacterial or viral infection; and have a lumbar puncture to assess this further. Finally, she had a head CT without contrast, admits these symptoms in the late morning, and the head CT showed no definite acute changes. No bleed. There were no clinical historical features or signs to highly suggest an acute neurovascular syndrome. Indeed, the head CT does not show any early changes of infarct or hemorrhage. Going forward, we will work on stabilization, as above, with assessing for infection and covering for infection. We will treat her with anticonvulsant medication. Once she is more stable and-- if there is persistent concern for ongoing or intermittent seizure activity, the next step would be to contact [facility] for transfer to one of their facilities for continuous EEG monitoring to have that guidance for more aggressive therapies. The plan was discussed with the ICU team, Hospitalist, and Medical Power of Analysis Lead. No further recommendations now. We will follow up on the above. Please do not hesitate to call if there are any questions or change in this patient's neurologic status. 35 minutes of critical care time in acute evaluation, stabilization and treatment of this patient. /[id number]/MODL MTDD
[2018-11-05] MEDS ORDERED: ROCURONIUM 100 MG/10 ML VIAL ONE (14:11)
[2018-11-05] MEDS ORDERED: KETAMINE 200 MG/20 ML VIAL ONE (14:24)
[2018-11-05] MEDS: MEROPENEM 2 GM in NS 100 ML IV SCH ×2 (14:26→22:46)
[2018-11-05] MEDS ORDERED: NOREPINEPHRINE BITARTRATE 4 MG in NS 500 ML IV SCH (14:30)
[2018-11-05] MEDS ORDERED: KETAMINE 200 MG/20 ML VIAL IV ONE (15:00)
[2018-11-05] MEDS ORDERED: ROCURONIUM 100 MG/10 ML VIAL IV ONE (15:00)
[2018-11-05] MEDS ORDERED: NS BOLUS 1000 ML (Wide open) IV ONE (15:00)
[2018-11-05] MEDS ORDERED: VANCOMYCIN HCL/NORMAL SALINE 250 ML IV ONE (15:00)
[2018-11-05] MEDS: DEXAMETHASONE 4 MG/ML VIAL IVP SCH ×2 (15:12→17:37)
[2018-11-05] MEDS: PROPOFOL/EMULSION 100 ML IV SCH (15:13)
[2018-11-05] MEDS ORDERED: NS 1,000 ML IV SCH (15:15)
--- NOTE | 2018-11-05 15:26 | PDINTPN ---
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 # septic shock. Due to above # acute respiratory failure requiring mechanical ventilation. Intubated 2018 # seizure. Improved with Ativan. Related to bacterial meningitis # lung mass. Differential as above. Aspergillus galactomannan negative, B,D glucan negative. Patient declined inpatient bronchoscopy and/or percutaneous CT guided needle bx. May be resolving sequela of pneumonia and July 2018 # DKA # encephalopathy. Due to above # hyponatremia. Multifactorial. # anion gap metabolic acidosis # hypokalemia, severe # leukocytosis. Due to severe infection PLAN # broad-spectrum antibiotics to cover for meningitis # consult ID, neurology # send CSF cultures and PCR # lung protective invasive mechanical ventilation # continue basal +bolus. May need to place back on insulin drip given worsening clinical status # propofol # NPO # H2 yadi # SQ hep # DNR Patient is critically ill due to multiorgan failure and is imminent risk for . Total critical care time 125 minutes which was spend evaluating the patient multiple times throughout the day at bedside with hospitalist, neurology , and infectious disease, meeting with family 11/05/18 15:37 Subjective: Patient initial clinical improvement however throughout morning day patient became increasingly somnolent altered confused and had a witnessed partial complex seizure that broke with Ativan and remained obtunded with impending respiratory failure. Discussions were had with family and they feel she would not want CPR was okay with life support for a short period of time if a reversible illness is present. Objective: Vital Signs Temp Pulse Resp BP Pulse Ox 36.3 C 125 H 20 107/57 L 100 11/05/18 07:29 11/05/18 15:03 11/05/18 15:03 11/05/18 15:03 11/05/18 15:03 Laboratory Results 11/05/18 05:15 11/05/18 05:15 11/04/18 11/05/18 11/06/18 05:59 05:59 05:59 Intake Total 3607.6 2896.4 400 Output Total 3500 4455 670 Balance 107.6 -1558.6 -270 Physical Exam - Physical Exam General Appearance: obtunded, severe distress EENT: ET tube Neck: non-tender, full range of motion, supple Respiratory: other (Tachypnea, accessory moved movement, poor air movement) Cardiac/Chest: normal peripheral pulses, other (Hypotensive, tachycardic) Abdomen: normal bowel sounds, non-tender, soft Skin: mottled, pallor Neuro/Psych: cognition abnormalities, other (Obtunded intermittent seizure-like activity) ICD10 Worksheet Patient Problems: Problems Problem Status Onset DKA (diabetic ketoacidoses) Acute Leukocytosis Acute Nausea and vomiting Acute Dehydration Acute Vomiting Acute
--- NOTE | 2018-11-05 15:42 | SUROPNOTE ---
[facility] Operative Report - Surgery Emergency Endotracheal Intubation Date and Time 11/05/2018 2:00 p.m. Operators S Felipe Jade MD Indication Respiratory failure Consent Emergency procedure in a critically ill decompensating patient Verbal consent was obtained via next of kin Preoxygenation NRB, BVM Medications Ketamine 100 mg Rocuronium 100 mg Equipment Mac 3 7.0 ETT Maccormick ruth grade view intubation 1 Number of Attempts 2 Post Procedure Placement was confirmed with capnography, breath sounds were auscultated bilaterally. , ETT espinoza, 24 cm at teeth, CXR ordered Complications None
--- NOTE | 2018-11-05 15:44 | SUROPNOTE ---
[facility] Operative Report - Surgery Central Line Insertion Procedure: Left Subclavian CVC Attending Physician: Dr. Avani Jade Anesthesiologist: N/A Anesthesia Type: N/A Indication: vascular access, shock Consent: Emergent procedure decompensated patient Time-Out: prior to the procedure, time-out was performed to verify patient's name, date of , correct procedure, correct side, correct site, correct patient position, correct radiographic data, and special equipment required. Pre-Op Dx: hypotension-presumed sepsis Post-Op Dx: hypotension-presumed sepsis Medications: none Description: Hand hygiene was performed. Pt was positioned supine and appropriate landmarks were identified. (site was selected as the optimal site for procedure, given considerations of sterility and safety). Skin above the left clavicle and left chest were prepped with Chloraprep (with time allowed to dry) prior to catheter insertion and with maximal sterile precautions ( including gown, sterile gloves, mask, cap, and large sterile draping). The site was locally anesthetized with lidocaine 1% (2 ml). Using landmarks, the left subclavian vein was punctured with an 18 gauage finder needle -> passage of guidewire -> passage of guidewire -> passage of dilator -> passage of CVC over guidewire. Return of venous blood from all ports, catheter was flushed. Catheter was sutured in place with silk suture and dressed with sterile dressing. Placement was confirmed by portable CXR. EBL: 0 ml Complications: none Specimens Sent: none Implants: N/A F/U: routine CVC care Avani Jade MD Pulmonary, Critical Care and Sleep Medicine [phone]
--- NOTE | 2018-11-05 15:48 | SUROPNOTE ---
[facility] Operative Report - Surgery Lumbar puncture Drupal Php Developer S Felipe Jade MD Procedure date and time 11/05/2018 1500 Consent Verbal consent was obtained from next of kin preoperative diagnosis Seizure, septic shock, TAMALE MAKER infection Postoperative diagnosis Purulent meningitis, septic shock Description procedure A time-out was performed. Maximum sterile precautions were used. Patient was placed in the left lateral position and prepped and draped in usual sterile fashion. Using landmarks the space between L4 and L5 was identified in after approximately 4 sticks purulent fluid slowly who is from 21 gauge spinal needle. Approximately 6 cc of purulent fluid was obtained and sent for culture. Patient tolerated the procedure well without any complications Estimated blood loss None Complications none Items to follow-up CSF fluid sent for culture
--- NOTE | 2018-11-05 16:15 | PDCONSULT ---
[facility] Dis[facility] Note: Infectious Diseases Consult Note Impression: 68-year-old woman with purulent meningitis with intracellular Gram- positive cocci seen on initial Gram stain. Will continue to cover with meropenem and keep fluconazole on for at least 1 dose until bacterial organisms confirmed as intracellular cryptococcus could potentially be misinterpreted as gram-positive cocci. No indication for antiviral therapy as HSV would not be expected to cause purulent meningoencephalitis. 1. Meningitis, subacute; indolent pathogen suggested gluten possible cryptococcus 2. Left lung nodular pneumonia; microbiology not defined 3. Poorly controlled diabetes mellitus 4. Diabetic ketoacidosis present on admission Plan: 1. Continue meropenem 2 g q.8 hours 2. Start fluconazole 800 mg IV daily; medication interactions noted 3. Stop vancomycin 4. He had encephalitis/meningitis [facility] 5. ID will follow and adjust antibiotics as microbiology information returns 6. Continue dexamethasone Chato Chen MD Infectious Diseases Chief Complaint: Consult for meningitis, purulent CSF Requesting Provider: Dr. Gutierrez Reason for Referral: Consultation was requested by Dr. Gutierrez regarding antimicrobial management. HPI: 68-year-old woman was admitted the hospital 11/02 with vomiting and poor p.o. Intake with a left lung pleural based lesion. She was noted to have worsening encephalopathy and underwent lumbar puncture today with purulent CSF obtained. She was intubated and required central line placement. She is sedated on the ventilator and is unable to participate in history. Most of history obtained from medical records spanning multiple hospitalizations. She initially presented to the emergency department on 10/31 with headache and nausea with vomiting times 24 hr felt better after fluid resuscitation and non narcotic analgesia with what she described as typical headaches for her. Re- presented on 11/02 to the emergency department with ongoing vomiting and inability to tolerate p.o. Intake with a nodular opacity noted on chest x-ray prompting admission. Since admission to the hospital her highest temperature was 38.2 degrees noted on 11/02 at approximately 8:00 a.m. In the evening. Throughout her hospitalization she has been noted to be periodically agitated in after initial control of her DKA, her anion gap reopened due to poor p.o. Intake. Hospitalization Summary: Admit date: 11/02/18 Date of initial ID consultation: 11/05/18 Site of infection: [facility] with purulent CSF obtained 11/05; left lung nodular opacity Surgical procedure(s): LP (4.); Intubation (4.) Microbiology: BCx (): Negative to date; CSF Cx (11.05): Pending Antibiotics during hospitalization: Meropenem 2gm q8 (11.05.19- ); Fluconazole 800mg IV (4.25- ); Ampicillin/sulbactam (4.26) Reviewed patient medical records in [facility], and [facility] ([facility] Travel history: Unable to obtain due to sedation Past Medical History: Obtained from medical record, diabetes mellitus type 2; treated with oral antibiotics for pneumonia in August Past Surgical History: Unable to obtain due to sedation Social History: Unable to obtain due to sedation Family History: Unable to obtain due to sedation Allergies: Erythromycin Medications: Reviewed in medical record. ROS: Unable to obtain due to sedation Physical Exam: VS: Reviewed Gen: No acute distress; sedated on ventilator Eyes: No conjunctival injection; No scleral icterus HENT: No gross deformities Neck: No lymphadenopathy Pulm: Audible inspiratory sounds to the bases bilaterally; No wheeze, rhonchi, or rales CV: Normal S1 and S2; Regular tachycardia; No murmurs, rubs, or gallops; No lower extremity edema Abd: Not distended; hypo-active bowel sounds; Soft Skin: A full skin exam including exposed bilateral upper extremities, bilateral lower extremities to the knees, face, neck, abdomen, chest, and back performed; blanching, dense erythematous rash the neck extending up to the chin and extending distally to the upper chest; otherwise, skin intact, warm, with no rash MSK: Joints without erythema or edema; No gross limitation in range of motion Ext: No clubbing or cyanosis Neuro: Sedated Psych: Unable to obtain due to sedation Labs/Imaging: All microbiology testing (culture and non-culture) reviewed in the medical record. Personally reviewed and interpreted the images of the following radiographs: Chest CT from admission showing left lung nodular pleural-based opacity Medications Generic Name Dose Route Start Last Admin Trade Name Freq PRN Reason Stop Dose Admin Dexamethasone 10 mg 11/05/18 13:45 Decadron Injection IVP 05/04/19 13:44 Q6HRS [facility] Meropenem 2 gm/ Sodium 140 mls @ 120 mls/hr 11/05/18 14:00 11/05/18 14:26 Chloride IV 12/05/18 13:59 140 mls Q8HRS [facility] Protocol Vancomycin/Sodium Chloride 250 mls @ 250 mls/hr 11/05/18 15:00 11/05/18 14:30 Vancomycin 1 Gm (Premix) IV 11/05/18 15:59 250 mls ONCE ONE Protocol Discontinued Medications Generic Name Dose Route Start Last Admin Trade Name Freq PRN Reason Stop Dose Admin Ampicillin Sodium/Sulbactam 100 mls @ 200 mls/hr 11/05/18 12:00 11/05/18 11: 49 Sodium 3 gm/ Sodium Chloride IV 12/05/18 11:59 100 mls Q6HRS [facility] Protocol Microbiology 11/02/18 17:15 Blood Blood Culture - Preliminary 11/02/18 17:10 Blood Blood Culture - Preliminary 10/31/18 10:45 Blood Blood Culture - Preliminary 10/31/18 10:30 Blood Blood Culture - Preliminary Laboratory Tests 11/02/18 11/02/18 11/02/18 09:45 10:00 17:10 WBC 18.69 H Hgb 15.8 Plt Count 278 Absolute Neuts (auto) Absolute Lymphs (auto) Creatinine Hemoglobin A1c Urine Ketones 2+ H Urine Glucose 3+ H HIV 1&2 Antibody A. galactomannan Ag < 0.500 11/03/18 11/03/18 11/04/18 05:30 05:30 04:20 WBC 16.51 H 15.43 H Hgb 15.0 16.0 Plt Count 244 279 Absolute Neuts (auto) 15.50 H 12.96 H Absolute Lymphs (auto) 0.58 L 1.23 Creatinine Hemoglobin A1c Urine Ketones Urine Glucose HIV 1&2 Antibody NEGATIVE A. galactomannan Ag 11/05/18 11/05/18 11/05/18 05:15 05:15 05:15 WBC 18.03 H Hgb 15.8 Plt Count 302 Absolute Neuts (auto) 16.29 H Absolute Lymphs (auto) 0.76 L Creatinine 0.3 L Hemoglobin A1c 9.4 H Urine Ketones Urine Glucose HIV 1&2 Antibody A. galactomannan Ag Ongoing monitoring for antimicrobial toxicity with: CBC, BMP, interval historical information, and interval physical exam. [id number] time with patient: 69 minutes with >50% of [id number] time spent in counseling, patient education, and coordinating care. Counseling provided included the microbiology of purulent meningitis, subacute causes of meningitis , expected time to resolution, natural history without treatment, and side effects of treatment.
--- NOTE | 2018-11-05 16:32 | HOSPPROG ---
Hospitalist Progress Note Assessment/Plan: * Acute bacterial meningitis -subacute presentation - was probably driving her DKA presentation -leading differential is Strep vs. Cryptococcus -immunosuppressed due to uncontrolled DM, HIV negative -empiric IV meropenem + IV Vanco -per ID DC IV Vanco and anti-fungal added -IV dexamethasone * DKA -difficult case - gap re-opened and back on insulin gtt -now SQ Lovenox -per family - insulin recommended in past and she refused * Acute respiratory failure -now on vent * Septic shock -IV norepi - check lactate * Seizure -IV Keppra * Hypokalemia - severe -repleted * Pleural based mass vs infection (necrosis vs. abscess vs. empyema) -refused bronch -IV meropenem * Metabolic encephalopathy -severe as above - due to meningitis * Urinary retention - >1L in bladder -now with baez * HTN -start lisinopril CC time - 90 minutes - multiple repeat visit throughout the day Subjective: Patient more encephalopathic this am, tachycardic, diaphoretic, dyscongugate gaze noted, but sitting up in chair. Head CT done - negative. As day progressed she become progressively more encephalopathy, to complete obtundation. Seizure like activity noted. Neurology consulted STAT. 2mg IV ativan given. Stiff all over. Concern heightened for possible meningitis. Long discussion with family regarding COR status, might be DNR but unclear. Decision made to proceed with intubation. BP dropped immediately after intubation and pressors started. LP performed by Dr. Jade at bedside with purulent CSF noted. ID Dr Louis emergently consulted. Patient no longer appears to be seizing. Objective: Vital Signs Temp Pulse Resp BP Pulse Ox 37.5 C 124 H 20 112/63 93 11/05/18 16:00 11/05/18 16:00 11/05/18 16:00 11/05/18 16:00 11/05/18 16:00 Microbiology 11/05/18 14:50 Gram Stain - Final Cerebral Spinal Fluid Laboratory Results 11/05/18 05:15 11/05/18 05:15 11/04/18 11/05/18 11/06/18 05:59 05:59 05:59 Intake Total 3607.6 2896.4 400 Output Total 3500 4455 670 Balance 107.6 -1558.6 -270 - Physical Exam Constitutional: chronically ill appearing Cardiovascular: tachycardia, No edema Respiratory: respiratory distress, rhonchi Gastrointestinal: soft, non-tender abdomen, No distension Neurologic: No AAOx3 Psychiatric: encephalopathic, agitated, poor insight, poor judgement, poor memory, No interacting appropriately ICD10 Worksheet Patient Problems: Problems Problem Status Onset Vomiting Acute Dehydration Acute Nausea and vomiting Acute DKA (diabetic ketoacidoses) Acute Leukocytosis Acute
[2018-11-05] MEDS ORDERED: NS 1,500 ML IV ONE (17:09)
[2018-11-05] MEDS: NACL IV SCH (17:17)
[2018-11-05] MEDS: FLUCONAZOLE IV SCH (17:17)
[2018-11-05] MEDS: POTASSIUM Cl (KCl) 50 ML IV SCH ×3 (18:37→22:55)
[2018-11-05] MEDS: levETIRAcetam 1000MG/NACL 100 ML IV SCH (22:22)
[2018-11-06] MEDS: DEXAMETHASONE 4 MG/ML VIAL IVP SCH ×4 (00:52→18:01)
[2018-11-06] MEDS: PROPOFOL/EMULSION 100 ML IV SCH ×2 (04:37→20:36)
[2018-11-06 05:01] LABS: PLATELET COUNT 239 10^3/uL (150-400)
[2018-11-06] MEDS: MEROPENEM 2 GM in NS 100 ML IV SCH ×3 (06:18→22:21)
[2018-11-06] MEDS: ENOXAPARIN 40 MG/0.4 ML SYR SC SCH (08:04)
[2018-11-06] MEDS: LISINOPRIL 10 MG TAB PO SCH (08:05)
[2018-11-06] MEDS: INSULIN REGULAR HUMAN 100 UNIT/ML UNIT SC SCH ×4 (08:12→22:21)
[2018-11-06] MEDS: NACL IV SCH (08:13)
[2018-11-06] MEDS: FLUCONAZOLE IV SCH (08:13)
[2018-11-06] MEDS: levETIRAcetam 1000MG/NACL 100 ML IV SCH ×2 (08:13→20:23)
[2018-11-06] MEDS: INSULIN GLARGINE 100 UNITS/ML UNIT SC SCH (08:14)
[2018-11-06] MEDS ORDERED: POTASSIUM Cl (KCl) 50 ML IV ONE (08:31)
--- NOTE | 2018-11-06 10:37 | PCMIDPN ---
Assessment/Plan: Assessment: 68-year-old woman with purulent, probable bacterial meningitis with probable intracellular Gram-positive cocci seen on initial Gram stain with encephalitis/meningitis PCR panel result pending. Call placed to the microbiology lab, expect result from PCR testing by this afternoon to tailor antimicrobial therapy. She remains stable in spite of a bundle E purulent CSF findings. 1. Purulent meningitis, subacute; probable Gram-positive cocci intracellular early on Gram stain 2. Encephalitis, likely secondary to 1. With presumed parenchymal extension 3. Poorly controlled diabetes mellitus 4. DKA present on admission and throughout hospital stay Plan: 1. Continue meropenem 2 g q.8 hours 2. Continue fluconazole 100 mg IV daily 3. Continue dexamethasone with stop date placed for 11/09 4. Will update antimicrobial planning based on microbiology testing, anticipate today Chato Chen MD Infectious Diseases 11/06/18 10:35 Subjective: Remains afebrile. Continues to require vasopressor support. No new rashes or diarrhea. CSF Gram stain revealed probable gram-positive cocci intracellular early. Awaiting results of meningitis/encephalitis PCR panel. Objective: Vital Signs Temp Pulse Resp BP Pulse Ox 37.5 C 104 H 20 164/99 H 98 11/06/18 08:53 11/06/18 08:00 11/06/18 08:00 11/06/18 08:00 11/06/18 08:00 Microbiology 11/05/18 14:50 Gram Stain - Final Cerebral Spinal Fluid Laboratory Results 11/06/18 04:45 11/06/18 04:45 11/05/18 11/06/18 11/07/18 05:59 05:59 05:59 Intake Total 2896.4 3607 Output Total 4455 1310 Balance -1558.6 2297 Medications Generic Name Dose Route Start Last Admin Trade Name Freq PRN Reason Stop Dose Admin Fluconazole/Sodium Chloride 400 mls @ 200 mls/hr 11/05/18 16:00 11/06/18 08: 13 Diflucan 2mg/Ml (Premix) IV 12/05/18 15:59 400 mls DAILY MIKE Meropenem 2 gm/ Sodium 140 mls @ 120 mls/hr 11/05/18 14:00 11/06/18 06:18 Chloride IV 12/05/18 13:59 140 mls Q8HRS [facility] Protocol Dexamethasone 10 mg 11/05/18 13:45 11/06/18 06:18 Decadron Injection IVP 05/04/19 13:44 10 mg Q6HRS [facility] Discontinued Medications Generic Name Dose Route Start Last Admin Trade Name Jim PRN Reason Stop Dose Admin Ampicillin Sodium/Sulbactam 100 mls @ 200 mls/hr 11/05/18 12:00 11/05/18 11: 49 Sodium 3 gm/ Sodium Chloride IV 12/05/18 11:59 100 mls Q6HRS [facility] Protocol Microbiology 11/05/18 14:50 Cerebral Spinal Fluid Gram Stain - Final 10/31/18 10:45 Blood Blood Culture - Final 10/31/18 10:30 Blood Blood Culture - Final 11/05/18 14:50 Cerebral Spinal Fluid CSF Culture - Preliminary 11/02/18 17:15 Blood Blood Culture - Preliminary 11/02/18 17:10 Blood Blood Culture - Preliminary Laboratory Tests 11/03/18 11/05/18 11/05/18 05:30 05:15 14:50 WBC 18.03 H Hgb 15.8 Plt Count 302 Creatinine CSF WBC 553403 H CSF Neutrophils % 95 H CSF Glucose < 20 L CSF Total Protein > 600 H HIV 1&2 Antibody NEGATIVE 11/06/18 11/06/18 04:45 04:45 WBC 12.25 H Hgb 12.7 Plt Count 239 Creatinine 0.4 L CSF WBC CSF Neutrophils % CSF Glucose CSF Total Protein HIV 1&2 Antibody Ongoing monitoring for antimicrobial toxicity with: CBC, BMP, interval historical information, and interval physical exam. - Physical Exam General Appearance: other (No acute distress at dated on the ventilator) EENT: No scleral icterus Respiratory: lungs clear, No crackles, No wheezing Neck: normal inspection Cardiac/Chest: tachycardia, No bradycardia, No diastolic murmur, No systolic murmur Extremities: No inflammation, No swelling, No erythema Abdomen: soft, other (Hypoactive bowel sounds), No distended Skin: other (Dense, blanching, erythematous rash over the upper chest and neck remains), No rash, No erythema Neuro/Psych: other (Opened eyes to manipulation, otherwise remains mostly obtained on the ventilator, does not follow commands) - Time Spent With Patient Time Spent with Patient: greater than 35 minutes Time Spent with Patient: Greater than 35 minutes spent on this patients care, greater than 50% of time spent counseling, educating, and coordinating care regarding the above mentioned plan. ICD10 Worksheet Patient Problems: Problems Problem Status Onset DKA (diabetic ketoacidoses) Acute Leukocytosis Acute Nausea and vomiting Acute Dehydration Acute Vomiting Acute
[2018-11-06] MEDS: LABETALOL HCL 200 MG TAB PO SCH ×3 (11:16→22:20)
--- NOTE | 2018-11-06 11:32 | PDINTPN ---
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 GPC on GS # acute respiratory failure requiring mechanical ventilation. Intubated 2018 # seizure. resolved with Ativan. Related to bacterial meningitis # encephalopathy. Due to above # Hypertension # lung mass. Differential as above. Aspergillus galactomannan negative, B,D glucan negative. Patient declined inpatient bronchoscopy and/or percutaneous CT guided needle bx. May be resolving sequela of pneumonia and July 2018 # DKA # hyponatremia. Multifactorial. # anion gap metabolic acidosis # hypokalemia, severe # leukocytosis. Due to severe infection # septic shock. resolved. Due to above PLAN # broad-spectrum antibiotics to cover for meningitis # continue dexamethasone through 11/09/18 # labetalol through OG tube 200 TID # place on open ended pressure support as patient is clinically improving low risk for ARDS # will need continued invasive mechanical ventilation until mental status improves # continue basal +bolus. May need to place back on insulin drip given worsening clinical status # start tube feeds # sedation propofol # H2 yadi # SQ hep # DNR Patient is critically ill due to multiorgan failure and is imminent risk for . Total critical care time 88 minutes which was spent reviewing patient's chart evaluating patient at bedside multidisciplinary rounds adjusting ventilator medications and discussions with family Subjective: Patient daily decompensated yesterday. Required emergent endotracheal intubation. Seizure activity resolved with Ativan, LP subsequently found to have purulent CSF fluid, required emergent central line for shock. A somewhat improved today but still critically ill. Objective: Vital Signs Temp Pulse Resp BP Pulse Ox 37.5 C 104 H 35 H 177/102 H 98 11/06/18 08:53 11/06/18 11:16 11/06/18 10:30 11/06/18 11:16 11/06/18 10:32 Microbiology 11/05/18 14:50 Gram Stain - Final Cerebral Spinal Fluid Laboratory Results 11/06/18 04:45 11/06/18 04:45 11/05/18 11/06/18 11/07/18 05:59 05:59 05:59 Intake Total 2896.4 3607 Output Total 4455 1310 Balance -1558.6 2297 Physical Exam - Physical Exam General Appearance: mild distress, obtunded EENT: pale conjunctiva (R), pale conjunctiva (L), ET tube, No rhinorrhea Neck: other (Trachea midline) Respiratory: chest non-tender, lungs clear Cardiac/Chest: normal peripheral pulses, regular rate, rhythm, other ( Hypertensive) Abdomen: non-tender, soft, No organomegaly Skin: normal color, warm/dry Extremities: No pedal edema, No swelling Neuro/Psych: other (Encephalopathic, sedated, intermittently opening eyes. Not following commands) ICD10 Worksheet Patient Problems: Problems Problem Status Onset DKA (diabetic ketoacidoses) Acute Leukocytosis Acute Nausea and vomiting Acute Dehydration Acute Vomiting Acute
--- NOTE | 2018-11-06 12:00 | NEUROPROG ---
Assessment: 1. Meningitis 2. Diabetes 3. Symptomatic focal seizures The lumbar puncture confirmed significant purulent meningitis. She is now on full antimicrobial therapy and followed by infectious disease as well. She has had no further overt seizures. Overall, as she likely developed meningitis in the setting of diabetes and then had acute symptomatic seizures in the setting of meningitis. She should continue Keppra 1000 mg IV Q 12 for seizure prophylaxis in the setting of meningitis. Seizure precautions. Certainly, this patient is critically ill and the prognosis is tenuous at this point. Her close family friends were counseled at length who were at bedside. We will continue to follow as needed. Please do not hesitate to call if there are any changes in the patient's neurologic status or questions. The patient appears to go back into protracted or intermittent seizures; the next step would be to consider transfer for continuous EEG monitoring to help with more aggressive therapies. Plan discussed with Hospital Medicine and ICU team. Subjective: No further overt seizures Objective: Vital Signs Temp Pulse Resp BP Pulse Ox 37.5 C 104 H 35 H 177/102 H 98 11/06/18 08:53 11/06/18 11:16 11/06/18 10:30 11/06/18 11:16 11/06/18 10:32 Microbiology 11/05/18 14:50 Gram Stain - Final Cerebral Spinal Fluid Laboratory Results 11/06/18 04:45 11/06/18 04:45 11/05/18 11/06/18 11/07/18 05:59 05:59 05:59 Intake Total 2896.4 3607 Output Total 4455 1310 Balance -1558.6 2297 Patient nonresponsive She no longer has the versive of eye and head movement No tonic stiffening 35 total minutes floor time; over 50% counseling and coordination of care. Allergies/Adverse Reactions: erythromycin base Allergy (Verified 11/02/18 09:38) nitrous oxide Allergy (Verified 11/02/18 09:38)
[2018-11-06] MEDS: FAMOTIDINE 20 MG TAB PO SCH ×2 (12:45→22:20)
[2018-11-06] MEDS ORDERED: VANCOMYCIN 750 MG in D5W 150 ML IV SCH (15:00)
--- NOTE | 2018-11-06 16:29 | HOSPPROG ---
Hospitalist Progress Note Assessment/Plan: 68 yo F w strep intermedius meningitis Acute bacterial meningitis -subacute presentation - was probably driving her DKA presentation strep intermedius -immunosuppressed due to uncontrolled DM, HIV negative -empiric IV meropenem + IV Vanco -per ID DC IV Vanco and anti-fungal added -IV dexamethasone DKA resolved on glargine/lispro Acute respiratory failure -now on vent Septic shock off pressors Seizure -IV Keppra Hypokalemia - severe -repleted Pleural based mass vs infection (necrosis vs. abscess vs. empyema) -refused bronch -IV meropenem Metabolic encephalopathy -severe as above - due to meningitis Urinary retention - >1L in bladder -now with baez HTN -start lisinopril dispo: icu 40 min crit care Subjective: case d/w dr estrella. stable on vent. not following commands. off pressors Objective: Vital Signs Temp Pulse Resp BP Pulse Ox 37.5 C 82 26 H 101/63 97 11/06/18 08:53 11/06/18 15:55 11/06/18 15:55 11/06/18 15:55 11/06/18 15:55 Microbiology 11/05/18 14:50 Gram Stain - Final Cerebral Spinal Fluid Laboratory Results 11/06/18 04:45 11/06/18 11:30 11/05/18 11/06/18 11/07/18 05:59 05:59 05:59 Intake Total 2896.4 3607 Output Total 4455 1310 Balance -1558.6 2297 - Physical Exam Constitutional: other (intubated, sedated) Eyes: PERRL, anicteric sclera Ears, Nose, Mouth, Throat: moist mucous membranes, hearing normal Cardiovascular: regular rate and rhythym, no murmur, rub, or gallop Respiratory: no respiratory distress, no rales or rhonchi Gastrointestinal: normoactive bowel sounds, soft, non-tender abdomen Genitourinary: no bladder fullness, No baez in urethra Skin: warm, normal color Musculoskeletal: No full muscle strength Neurologic: No AAOx3 Psychiatric: No interacting appropriately Lymph, Heme, Immunologic: no cervical LAD ICD10 Worksheet Patient Problems: Problems Problem Status Onset DKA (diabetic ketoacidoses) Acute Leukocytosis Acute Nausea and vomiting Acute Dehydration Acute Vomiting Acute
[2018-11-06] MEDS ORDERED: POTASSIUM CL 10 MEQ TAB PO ONE ×2 (19:37→22:19)
[2018-11-07] MEDS: DEXAMETHASONE 4 MG/ML VIAL IVP SCH ×5 (00:39→23:28)
[2018-11-07] MEDS ORDERED: POTASSIUM CL 10 MEQ TAB PO ONE (02:13)
[2018-11-07] MEDS ORDERED: POTASSIUM CL 20 MEQ/15 ML UDCUP TUBE ONE (02:30)
[2018-11-07] MEDS: LABETALOL HCL 200 MG TAB PO SCH ×3 (05:16→21:11)
[2018-11-07] MEDS: MEROPENEM 2 GM in NS 100 ML IV SCH ×3 (05:16→21:11)
[2018-11-07] MEDS: INSULIN REGULAR HUMAN 100 UNIT/ML UNIT SC SCH ×4 (08:10→21:28)
[2018-11-07] MEDS: PROPOFOL/EMULSION 100 ML IV SCH ×2 (08:11→21:12)
[2018-11-07] MEDS: FAMOTIDINE 20 MG TAB PO SCH ×2 (08:11→21:11)
[2018-11-07] MEDS: LISINOPRIL 10 MG TAB PO SCH (08:11)
[2018-11-07] MEDS: ENOXAPARIN 40 MG/0.4 ML SYR SC SCH (08:11)
[2018-11-07] MEDS: INSULIN GLARGINE 100 UNITS/ML UNIT SC SCH (08:11)
[2018-11-07] MEDS: levETIRAcetam 1000MG/NACL 100 ML IV SCH ×2 (08:11→20:50)
[2018-11-07] MEDS ORDERED: PETROLAT,WHT/MIN OIL/SOD CHL 3.5 GM OPHT.OINT EACHEYE PRN (10:50)
--- NOTE | 2018-11-07 12:27 | PCMIDPN ---
Assessment/Plan: Assessment: 68-year-old woman with purulent bacterial meningitis with Streptococcus intermedius. Susceptibility testing will be delayed until tomorrow due to poor growth initially in culture. Due to a 6% resistance rate amongst Viridans streptococci, will continue with meropenem to ensure active agent. Fixed left lateral gaze may suggest underlying brain abscess that has extended into the CSF as Streptococcus intermedius is well known to be abscessogenic. 1. Fixed left lateral gaze, possible brain abscess and/or seizure 2. Purulent meningitis, subacute; Streptococcus intermedius recovered from CSF 3. Encephalitis, likely secondary to 1. With presumed parenchymal extension 4. Poorly controlled diabetes mellitus 5. DKA present on admission and throughout hospital stay Plan: 1. Continue meropenem 2 g q.8 hours 2. Continue dexamethasone with stop date placed for 11/09 3. Susceptibility testing on recovered Streptococcus intermedius will return on 11/08 to tailor antimicrobial therapy 4. Agree with brain imaging with CT with contrast or MRI Chato Chen MD Infectious Diseases 11/07/18 12:23 Subjective: No objective documented fevers. No diarrhea per nursing staff. Objective: Vital Signs Temp Pulse Resp BP Pulse Ox 37.3 C 79 20 127/77 H 98 11/07/18 10:00 11/07/18 10:00 11/07/18 10:00 11/07/18 10:00 11/07/18 10:00 Microbiology 11/05/18 14:50 Gram Stain - Final Cerebral Spinal Fluid Laboratory Results 11/06/18 04:45 11/07/18 11:45 11/06/18 11/07/18 11/08/18 05:59 05:59 05:59 Intake Total 3607 899.8 Output Total 1310 800 Balance 2297 99.8 Medications Generic Name Dose Route Start Last Admin Trade Name Freq PRN Reason Stop Dose Admin Dexamethasone 10 mg 11/05/18 13:45 11/07/18 11:46 Decadron Injection IVP 11/09/18 13:44 10 mg Q6HRS [facility] Meropenem 2 gm/ Sodium 140 mls @ 120 mls/hr 11/05/18 14:00 11/07/18 05:16 Chloride IV 12/05/18 13:59 140 mls Q8HRS [facility] Protocol Microbiology 11/05/18 14:50 Cerebral Spinal Fluid Gram Stain - Final 11/05/18 14:50 Cerebral Spinal Fluid CSF Culture - Preliminary Streptococcus Intermedius 11/02/18 17:15 Blood Blood Culture - Preliminary 11/02/18 17:10 Blood Blood Culture - Preliminary Laboratory Tests 11/04/18 11/05/18 11/06/18 04:20 05:15 04:45 WBC 15.43 H 18.03 H 12.25 H Hgb 16.0 15.8 12.7 Plt Count 279 302 239 Absolute Lymphs (auto) 1.23 0.76 L 0.29 L Creatinine Cryptococcus Ag Screen Ur Strep pneumoniae Ag 11/06/18 11/07/18 12:50 05:00 WBC Hgb Plt Count Absolute Lymphs (auto) Creatinine 0.4 L Cryptococcus Ag Screen Pending Ur Strep pneumoniae Ag Pending Ongoing monitoring for antimicrobial toxicity with: CBC, BMP, interval historical information, and interval physical exam. - Physical Exam General Appearance: other (No acute distress breathing with ventilator) EENT: No scleral icterus Respiratory: coarse breath sounds, No crackles, No wheezing Neck: other (Erythema anteriorly, blanching) Cardiac/Chest: tachycardia, No bradycardia, No diastolic murmur, No systolic murmur Extremities: No erythema Abdomen: soft, No distended, No guarding (Hypoactive bowel sounds) Skin: No jaundice, No erythema Neuro/Psych: other ([place] the; left fixed gaze bilaterally) - Time Spent With Patient Time Spent with Patient: greater than 35 minutes Time Spent with Patient: Greater than 35 minutes spent on this patients care, greater than 50% of time spent counseling, educating, and coordinating care regarding the above mentioned plan. ICD10 Worksheet Patient Problems: Problems Problem Status Onset DKA (diabetic ketoacidoses) Acute Leukocytosis Acute Nausea and vomiting Acute Dehydration Acute Vomiting Acute
[2018-11-07] MEDS ORDERED: IOPAMIDOL (ISOVUE-300) 100 ML BTL ONE (14:05)
--- NOTE | 2018-11-07 14:10 | PDINTPN ---
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 Strep intermedius # acute respiratory failure requiring mechanical ventilation. Intubated 2018 # seizure. resolved with Ativan. Related to bacterial meningitis. # encephalopathy. Due to above # Hypertension # lung mass. Differential as above. Aspergillus galactomannan negative, B,D glucan negative. Patient declined inpatient bronchoscopy and/or percutaneous CT guided needle bx. May be resolving sequela of pneumonia and July 2018 # DKA # hyponatremia. Multifactorial. # anion gap metabolic acidosis # hypokalemia, severe # leukocytosis. Due to severe infection # septic shock. resolved. Due to above PLAN # continue meropenem until sensitivities result per ID # continue dexamethasone through 11/09/18 # labetalol through OG tube 200 TID # will need continued invasive mechanical ventilation until mental status improves # CT head with contrast to rule abscess # watch for signs and symptoms of seizures # insulin basal +bolus. # tube feeds # sedation propofol # H2 yadi # SQ hep # DNR 11/05/2018-LP 129,350 WBC, strep intermedius Patient is critically ill due to multiorgan failure and is imminent risk for . Total critical care time 65 minutes which was spent, evaluating patient, discussions with specialist, reviewing patient's chart, adjusting ventilator and medications 11/07/18 14:50 Subjective: Maintained on ventilator support overnight. Still encephalopathic and unable to obtain review of systems. Family would like to continue current level of care. Objective: Vital Signs Temp Pulse Resp BP Pulse Ox 37.3 C 85 20 148/83 H 99 11/07/18 10:00 11/07/18 12:00 11/07/18 12:00 11/07/18 12:00 11/07/18 12:00 Microbiology 11/05/18 14:50 Gram Stain - Final Cerebral Spinal Fluid Laboratory Results 11/06/18 04:45 11/07/18 11:45 11/06/18 11/07/18 11/08/18 05:59 05:59 05:59 Intake Total 3607 899.8 Output Total 1310 800 Balance 2297 99.8 Physical Exam - Physical Exam General Appearance: obtunded EENT: ET tube, No purulent nasal drainage, No rhinorrhea Neck: normal inspection, No thyromegaly Respiratory: chest non-tender, lungs clear, normal breath sounds Cardiac/Chest: normal peripheral pulses, regular rate, rhythm Abdomen: normal bowel sounds, non-tender Back: Normal inspection Skin: normal color, warm/dry Extremities: No pedal edema, No swelling Neuro/Psych: other (Obtunded, not following commands, intermittently gazing up and out to the left) ICD10 Worksheet Patient Problems: Problems Problem Status Onset DKA (diabetic ketoacidoses) Acute Leukocytosis Acute Nausea and vomiting Acute Dehydration Acute Vomiting Acute
--- NOTE | 2018-11-07 14:31 | ASMTCMCOM ---
CM Note CM Note Notes: Patient's clinical status continues to worsen. She is currently intubated/sedated. Tube feeds. Dr Love spoke with her friends/family yesterday and expressed that her prognosis is uncertain. It's too early to begin d/c planning. Case Management will follow. Date Signed: 11/07/2018 02:31 PM Electronically Signed By:Juanita Holguin RN
--- NOTE | 2018-11-07 14:32 | HOSPPROG ---
Hospitalist Progress Note Assessment/Plan: 68 yo F w strep intermedius meningitis Acute bacterial meningitis -subacute presentation - was probably driving her DKA presentation strep intermedius -immunosuppressed due to uncontrolled DM, HIV negative -empiric IV meropenem + IV Vanco -per ID DC IV Vanco and anti-fungal added -IV dexamethasone- current dose add'l 24 hours ? seizure: on keppra checking CT w contrast eeg in AM DKA resolved on glargine/lispro Acute respiratory failure -now on vent Septic shock off pressors Seizure -IV Keppra Hypokalemia - severe -repleted Pleural based mass vs infection (necrosis vs. abscess vs. empyema) -refused bronch -IV meropenem Metabolic encephalopathy -severe as above - due to meningitis Urinary retention - >1L in bladder -now with baez HTN -start lisinopril dispo: icu 40 min crit care Subjective: remains intubated. some ? of seizure activity. case d/w dr estrella Objective: Vital Signs Temp Pulse Resp BP Pulse Ox 37.3 C 85 20 148/83 H 99 11/07/18 10:00 11/07/18 12:00 11/07/18 12:00 11/07/18 12:00 11/07/18 12:00 Microbiology 11/05/18 14:50 Gram Stain - Final Cerebral Spinal Fluid Laboratory Results 11/06/18 04:45 11/07/18 11:45 11/06/18 11/07/18 11/08/18 05:59 05:59 05:59 Intake Total 3607 899.8 Output Total 1310 800 Balance 2297 99.8 - Physical Exam Constitutional: other (intubated, sedated) Eyes: PERRL, anicteric sclera Ears, Nose, Mouth, Throat: moist mucous membranes, hearing normal Cardiovascular: regular rate and rhythym, no murmur, rub, or gallop Respiratory: no respiratory distress, no rales or rhonchi Gastrointestinal: normoactive bowel sounds, soft, non-tender abdomen Genitourinary: no bladder fullness, No baez in urethra Skin: warm, normal color Musculoskeletal: No full muscle strength Neurologic: No AAOx3 Psychiatric: No interacting appropriately Lymph, Heme, Immunologic: no cervical LAD ICD10 Worksheet Patient Problems: Problems Problem Status Onset DKA (diabetic ketoacidoses) Acute Leukocytosis Acute Nausea and vomiting Acute Dehydration Acute Vomiting Acute
[2018-11-07] MEDS ORDERED: POTASSIUM Cl (KCl) 50 ML IV ONE (15:25)
--- NOTE | 2018-11-07 16:14 | NEUROPROG ---
Assessment: 1. Meningitis 2. Diabetes 3. Symptomatic focal seizures The lumbar puncture confirmed significant purulent meningitis. She is now on full antimicrobial therapy and followed by infectious disease as well. Head CT done today shows significant abnormalities with possible abscess formation, purulent material and there could be secondary infarcts. She had some gaze deviation today earlier, there is not on exam today. She certainly may be having focal seizure activity intermittently. Plan: 1. Continue levetiracetam 1000 mg IV q.12 hours 2. P.r.n. 2 mg IV Ativan for breakthrough overt seizures 3. Seizure precaution In addition, her overall neurologic prognosis is guarded at this point. Her wishes for advanced treatment will be considered. We will get in touch with relevant family friends who are closest to the patient to help make ongoing decisions. We need to understand how aggressive she would want therapies to be at this point. We certainly do not need to pursue EEG if family wants to withdraw care, for example. In addition, if EEG shows seizure activity, the decision to transfer for continuous EEG monitoring needs to be made carefully with the family based on the entire medical plan. I will let my colleague who takes over the service know about this patient. Please do not hesitate to contact the neurology service if there are any questions relating to the above. Otherwise we will continue to follow up p.r.n. Subjective: No new symptoms Objective: Vital Signs Temp Pulse Resp BP Pulse Ox 37.3 C 85 20 148/83 H 99 11/07/18 10:00 11/07/18 12:00 11/07/18 12:00 11/07/18 12:00 11/07/18 12:00 Microbiology 11/05/18 14:50 Gram Stain - Final Cerebral Spinal Fluid Laboratory Results 11/06/18 04:45 11/07/18 11:45 11/06/18 11/07/18 11/08/18 05:59 05:59 05:59 Intake Total 3607 899.8 Output Total 1310 800 Balance 2297 99.8 The patient is not responsive Eyes were closed When I retracted her eyelids eyes were midline without nystagmoid eye movements 35 total minutes floor time; over 50% counseling /coordination of care Allergies/Adverse Reactions: erythromycin base Allergy (Verified 11/02/18 09:38) nitrous oxide Allergy (Verified 11/02/18 09:38)
[2018-11-07] MEDS ORDERED: LORazepam 2 MG/ML INJ IVP ONE (16:17)
--- NOTE | 2018-11-07 16:17 | PDINTPN ---
Environmental Field Office Manager Progress Note Assessment/Plan: Critical Care Update CT head with contrast demonstrated multiple intraparenchymal abscesses with hyperdense fluid consistent with pus in lateral ventricles. Also with hypodensities consistent consistent vasogenic edema versus ischemia from vasospasm in the setting of extensive infected. I discussed case with Dr. Caraballo of Radiology, Dr Sanders of neurology and Dr Louis of infectious disease. There is highly unlikely that patient would survive the severity of her illness with a meaningful recovery. Moreover this is not in line with her goals of care stated in her MOST form. I discussed with patient's brother, Chester 1 of 2 POAs, and relayed this information. He does not think aggressive surgical intervention and transfer are in line with her goals of care. He will discuss with Shaista and will likely withdrawal care today or tomorrow. In the meantime we maintain current level of care but will not escalate if patient further decompensates Objective: Vital Signs Temp Pulse Resp BP Pulse Ox 37.3 C 85 20 148/83 H 99 11/07/18 10:00 11/07/18 12:00 11/07/18 12:00 11/07/18 12:00 11/07/18 12:00 Microbiology 11/05/18 14:50 Gram Stain - Final Cerebral Spinal Fluid Laboratory Results 11/06/18 04:45 11/07/18 11:45 11/06/18 11/07/18 11/08/18 05:59 05:59 05:59 Intake Total 3607 899.8 Output Total 1310 800 Balance 2297 99.8 ICD10 Worksheet Patient Problems: Problems Problem Status Onset Vomiting Acute Dehydration Acute Nausea and vomiting Acute DKA (diabetic ketoacidoses) Acute Leukocytosis Acute
[2018-11-07] MEDS ORDERED: DEXAMETHASONE 4 MG/ML VIAL IVP SCH (18:00)
[2018-11-08] MEDS: DEXAMETHASONE 4 MG/ML VIAL IVP SCH ×3 (05:30→19:12)
[2018-11-08] MEDS: LABETALOL HCL 200 MG TAB PO SCH ×3 (05:32→21:10)
[2018-11-08] MEDS: MEROPENEM 2 GM in NS 100 ML IV SCH (05:32)
[2018-11-08] MEDS ORDERED: POTASSIUM Cl (KCl) 50 ML IV ONE (07:51)
[2018-11-08] MEDS: ENOXAPARIN 40 MG/0.4 ML SYR SC SCH (07:56)
[2018-11-08] MEDS: INSULIN REGULAR HUMAN 100 UNIT/ML UNIT SC SCH ×4 (07:56→21:07)
[2018-11-08] MEDS: INSULIN GLARGINE 100 UNITS/ML UNIT SC SCH (07:56)
[2018-11-08] MEDS: levETIRAcetam 1000MG/NACL 100 ML IV SCH ×2 (07:57→21:03)
[2018-11-08] MEDS: LISINOPRIL 10 MG TAB PO SCH (07:57)
[2018-11-08] MEDS: FAMOTIDINE 20 MG TAB PO SCH ×2 (07:58→21:09)
--- NOTE | 2018-11-08 09:57 | PCMIDPN ---
Assessment/Plan: Assessment: 68-year-old woman with purulent bacterial meningitis with Streptococcus intermedius. Change in antimicrobials due to low mics of Streptococcus intermedius. Multifocal brain abscesses with purulence in the ventricles next recovery without likely requiring neurosurgical intervention, at least with an EVD to ensure hydrocephalus does not developed would be required. Continue with dexamethasone as an adjunct to decreased CSF inflammation, which will also act to decrease intraparenchymal edema related to brain abscesses initially as antimicrobial therapy takes effect. 1. Fixed left lateral gaze, possible brain abscess and/or seizure; Sequelae of brain abscesses 2. Multifocal brain abscesses 3. 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 Encephalitis, likely secondary to 1. With presumed parenchymal extension 5. Poorly controlled diabetes mellitus 6. DKA present on admission and throughout hospital stay Plan: 1. Stop meropenem 2. Start ceftriaxone 2gm BID based on susceptibility results 3. Continue dexamethasone with stop date placed for 11/09 4. If ongoing aggressive measures pursued the consistent with patient wishes, neurosurgery evaluation for possible EVD placement due to purulent CSF in the ventricles likely leading to the development of hydrocephalus Chato Chen MD Infectious Diseases 11/08/18 09:51 Subjective: Continues without objective fever. Underwent head CT with contrast showing probable small abscesses throughout the MED SURG RN including probable purulence in the lateral ventricles. Continues to have fixed left gaze. Plan to have a family discussion today about patient's desired goals of care. Objective: Vital Signs Temp Pulse Resp BP Pulse Ox 36.5 C 78 20 120/77 99 11/08/18 08:00 11/08/18 08:24 11/08/18 08:24 11/08/18 08:00 11/08/18 08:24 Microbiology 11/05/18 14:50 Gram Stain - Final Cerebral Spinal Fluid 11/02/18 17:10 Blood Culture - Final Blood 11/02/18 17:15 Blood Culture - Final Blood Laboratory Results 11/06/18 04:45 11/08/18 04:00 11/07/18 11/08/18 11/09/18 05:59 05:59 05:59 Intake Total 899.8 1354 Output Total 800 1150 Balance 99.8 204 Medications Generic Name Dose Route Start Last Admin Trade Name Freq PRN Reason Stop Dose Admin Ceftriaxone Sodium 2 gm/ 50 mls @ 100 mls/hr 11/08/18 10:00 Sodium Chloride IV 12/08/18 09:59 BID [facility] Protocol Microbiology 11/05/18 14:50 Cerebral Spinal Fluid Gram Stain - Final 11/02/18 17:15 Blood Blood Culture - Final 11/02/18 17:10 Blood Blood Culture - Final 10/31/18 10:45 Blood Blood Culture - Final 10/31/18 10:30 Blood Blood Culture - Final 11/05/18 14:50 Cerebral Spinal Fluid CSF Culture - Preliminary Streptococcus Intermedius Laboratory Tests 11/05/18 11/06/18 11/06/18 05:15 04:45 12:50 WBC 18.03 H 12.25 H Absolute Neuts (auto) 16.29 H 11.66 H Absolute Lymphs (auto) 0.76 L 0.29 L Creatinine Cryptococcus Ag Screen Pending Ur Strep pneumoniae Ag Pending 11/08/18 04:00 WBC Absolute Neuts (auto) Absolute Lymphs (auto) Creatinine 0.4 L Cryptococcus Ag Screen Ur Strep pneumoniae Ag Ongoing monitoring for antimicrobial toxicity with: CBC, BMP, interval historical information, and interval physical exam. - Physical Exam General Appearance: no apparent distress (Sedated on ventilator, not overbreathing the vent) EENT: No scleral icterus Respiratory: coarse breath sounds, No wheezing Cardiac/Chest: No diastolic murmur, No systolic murmur (Normal S1 and S2) Extremities: No inflammation, No swelling, No erythema Abdomen: other (Hypoactive bowel sounds, soft, not distended) Skin: No erythema Neuro/Psych: other (Sedated on ventilator but does respond to tactile stimuli; continues to have fixed left gaze) - Time Spent With Patient Time Spent with Patient: greater than 35 minutes Time Spent with Patient: Greater than 35 minutes spent on this patients care, greater than 50% of time spent counseling, educating, and coordinating care regarding the above mentioned plan. ICD10 Worksheet Patient Problems: Problems Problem Status Onset DKA (diabetic ketoacidoses) Acute Leukocytosis Acute Nausea and vomiting Acute Dehydration Acute Vomiting Acute
--- NOTE | 2018-11-08 11:23 | HOSPPROG ---
Hospitalist Progress Note Assessment/Plan: 68 yo F w strep intermedius meningitis Acute bacterial meningitis -subacute presentation - was probably driving her DKA presentation strep intermedius (notorious for abscess formation) -immunosuppressed due to uncontrolled DM, HIV negative contrast CT w likely pus in ventricles, multifocal infarcts vs abscesses or both (interp by me) this portends a poor termite treater helper neurologi prognosis neurosurgery to see plan of care: family deciding on aggressive vs confort care ? seizure: on keppra checking CT w contrast hold eeg for now, depending on direction of care DKA resolved on glargine/lispro Acute respiratory failure -now on vent Septic shock off pressors Seizure -IV Keppra Hypokalemia - severe -repleted Pleural based mass vs infection (necrosis vs. abscess vs. empyema) -refused bronch -IV meropenem Metabolic encephalopathy -severe as above - due to meningitis Urinary retention - >1L in bladder -now with baez HTN -start lisinopril dispo: icu 40 min crit care Subjective: case d/w dr haji. 40 minutes spent w family discussing plan of care Objective: Vital Signs Temp Pulse Resp BP Pulse Ox 36.5 C 84 24 H 124/74 H 98 11/08/18 08:00 11/08/18 10:00 11/08/18 10:00 11/08/18 10:00 11/08/18 10:00 Microbiology 11/05/18 14:50 Gram Stain - Final Cerebral Spinal Fluid CSF Culture - Final Streptococcus Intermedius 11/02/18 17:10 Blood Culture - Final Blood 11/02/18 17:15 Blood Culture - Final Blood Laboratory Results 11/06/18 04:45 11/08/18 04:00 11/07/18 11/08/18 11/09/18 05:59 05:59 05:59 Intake Total 899.8 1354 Output Total 800 1150 Balance 99.8 204 - Physical Exam Constitutional: other (intubated, sedated, not following commands) Eyes: PERRL, anicteric sclera Ears, Nose, Mouth, Throat: moist mucous membranes, hearing normal Cardiovascular: regular rate and rhythym, no murmur, rub, or gallop Respiratory: no respiratory distress, no rales or rhonchi Gastrointestinal: normoactive bowel sounds, soft, non-tender abdomen Genitourinary: no bladder fullness, baez in urethra Skin: warm, normal color Musculoskeletal: No full muscle strength Neurologic: No AAOx3 Psychiatric: No interacting appropriately Lymph, Heme, Immunologic: no cervical LAD ICD10 Worksheet Patient Problems: Problems Problem Status Onset DKA (diabetic ketoacidoses) Acute Leukocytosis Acute Nausea and vomiting Acute Dehydration Acute Vomiting Acute
--- NOTE | 2018-11-08 13:16 | GCON ---
[f rep st] CONSULTATION DATE OF CONSULTATION: 11/08/2018 REFERRING PHYSICIAN: Duarte Love MD The patient is seen in intensive care unit in room 252 by neurosurgical services on 11/08/2018, at 11:50 a.m. PRESENTING CHIEF COMPLAINT: 1. Nausea to Emergency Department on 11/02/2018. 2. Meningitis. Staphylococcus intermedius. HISTORY OF PRESENT ILLNESS: The patient is a 68-year-old female with a history of type 2 diabetes that presented to the emergency department on 11/02/2018. She was seen in the emergency department by Dr. Tran for evaluation of ICU care and a lung mass that was noted. At the time, the patient is a 68-year-old female with type 2 diabetes who presented to the emergency department initially with nausea, vomiting, and headaches. She reported the time inability to take p.o., but did have elevated blood glucose and she was recently prescribed glyburide for this. She is a [place] patient who a couple of months ago was treated for pneumonia. At that time, she denied any active respiratory complaints or symptoms, such as chest pain, fever, chills, or cough. She is a nonsmoker. Over the course of the last 3 to 4 days, the patient has worsened to the point she did have an LP, which showed Staph infection noted. Currently, Critical Care, Internal Medicine, Neurology, and Infectious Disease are involved in her care. We were asked to see her today for consideration of EVD placement to monitor ICPs, as well as administration of intrathecal antibiotics. The patient 's medical [id number] is at the bedside. Currently, she is intubated and sedated. When we did lighten her sedation, she did have some movement mainly on the right side, not much movement on the left. She will track somewhat on her exam. Followup CT scans were performed. Most recent CT scan showed multiple numerous abscesses, possible infarction, as well as intrathecal debris noted in the ventricular system. ALLERGIES: To erythromycin and nitrous oxide. MEDICATIONS: Current home medications prior to admission, metformin and reports of glyburide. PAST MEDICAL HISTORY: Significant for type 2 diabetes. PAST SURGICAL HISTORY: Per reports was reviewed and non-pertinent. FAMILY HISTORY: No history of lung mass. SOCIAL HISTORY: Patient has never smoked. She is single, lives in [place]. Family is at bedside. IMMUNIZATIONS: Reported up to date. TRAVEL: No recent travel. REVIEW OF SYSTEMS: Difficult to obtain. Majority of her history is obtained from prior note, as well as family who is at her bedside, including her medical [id number]. A 10-point review of systems was reviewed and negative, except as noted in HPI and prior notes, as well as family. PHYSICAL EXAMINATION: GENERAL: This is an intubated, sedated female. VITAL SIGNS: Most recent: Blood pressure 136/82 with a MAP of 104, 84 heart rate, 31 respirations, 99% on the vent at 40% FiO2. HEENT: Head is normocephalic, atraumatic. Pupils are equal, round, and sluggish at 3 to 4 mm both eyes. The patient will track to verbal stimuli. She will withdrawal to painful stimuli, mainly in the right upper and right lower extremity. She will have some spontaneous movement of her right upper and right lower extremity. There was no noted spontaneous movement of left upper left lower extremity and she does not follow commands. Ears are patent. Nose is patent. NECK: Soft and supple. No crepitus noted. RESPIRATORY/CARDIAC: Deferred. ABDOMEN: Soft. /RECTAL: Deferred. NEURO: As noted above. Exam limited due to sedation and intubation. MEDICAL DECISION MAKING DIAGNOSTIC STUDIES/LABORATORY TESTS: Most recent laboratory tests obtained 11/06/2018, shows a white count of 12.25 with an H and H 12.7 and 34.0, platelet count 239. Chemistry obtained 11/08/2018, shows sodium 137, potassium 3.9, chloride 106, CO2 26, BUN 23, creatinine 0.4, and glucose of 251. Urine showed on 11/02/2018, 3+ glucose, 2+ ketones. Lumbar puncture CSF on 11/05/2018, was cloudy appearance with 129,350 WBCs, 258 RBCs, 95 neutrophils, glucose less than 20, and total protein greater than 600. Toxicology was negative. Cerebral spinal fluid shows Streptococcus intermedius, original report was Stap , but per laboratory tests shows Streptococcus intermedius. MEDICAL DECISION MAKING DIAGNOSTIC STUDIES/IMAGING: CT scan of the head obtained 11/05/2018, compared with the CT scan of the head on 11/07/2018, shows multiple small intraparenchymal and subependymal abscesses suspected with increased density and purulent material within the lateral ventricles. Relatively attenuation of the peripheral branches of intracranial circulation. Consider underlying spasm and recommendations for a CT-A or MRA for further characterization was given by the radiologist. Extensive nonspecific hypodensities in the white matter. Differential diagnosis, including microvascular ischemic disease, post infection causes, atypical demyelinating diseases. The patient was seen by Neurology. IMPRESSION: 1. Streptococcus intermedius meningitis. 2. History of diabetes type 2, reportedly uncontrolled. 3. Intracranial abscess infection/meningitis. PLAN/DISCUSSION: The patient is a 68-year-old female who per reports has deteriorated over her hospital stay. Her diagnosis was established with a lumbar puncture of a Streptococcus intermedius infection. She is currently on Rocephin. Dr. Wilson did see and evaluate the patient, as well as myself. We spent approximately 40 minutes with the patient's daughter and family going over imaging. We did speak with her about the possibility of the external ventricular drain placement for intracranial pressure monitoring, as well as administration of intrathecal antibiotics. At this point, after speaking with nursing staff, as well as Dr. Love, we recommended an MRI of the brain with and without. We will need to hold her Lovenox and placement of an external ventricular drain can happen likely tomorrow. We did review this with the patient's family who is the medical [id number]. Recommendations for further treatment will be decided once the family visits with Infectious Disease again, as well as Internal Medicine. We will obtain the MRI of the brain with and without contrast. This would give us more information about recommendations about her prognosis. All questions and concerns were answered of the family members who were present. /[id number]/MODL MTDD
--- NOTE | 2018-11-08 15:45 | PDINTPN ---
Instructional Coach Progress Note Assessment/Plan: 68 F admitted 11/02 with apparent lung abscess/empyema and DKA who initially responded well to antibiotics but had an acute decompensation and was found to have sere bacterial meningitis with charisse pus on LP and evidence of pus in her ventricles and seizures. She had septic shock and respiratory failure, and has been managed by critical care team, hospitalists, ID, and neurology and neurosurgery. Given the severity of her disease burden, she was thought to likely need prolonged and intense support, which was apparently beyond her previously stated wishes. * Bacterial meningitis with poor prognosis. Family has stated that additional diagnostic and therapeutic maneuvers are beyond her scope of intervention. Palliative care has been consulted with a likely transition to hospice and comfort care. * Acute respiratory failure- remains on minimal vent support, but if she extubates with comfort care in mind, I would not expect a rpid demise from this perspective. * Lung mass/fluid collection- patient previously declined workup, though this remains small on his CT Subjective: non-verbal and does not follow commands on the vent Objective: Vital Signs Temp Pulse Resp BP Pulse Ox 36.5 C 87 20 98/67 L 99 11/08/18 14:00 11/08/18 14:00 11/08/18 14:00 11/08/18 14:00 11/08/18 14:00 Microbiology 11/05/18 14:50 Gram Stain - Final Cerebral Spinal Fluid CSF Culture - Final Streptococcus Intermedius 11/02/18 17:10 Blood Culture - Final Blood 11/02/18 17:15 Blood Culture - Final Blood Laboratory Results 11/06/18 04:45 11/08/18 11:55 11/07/18 11/08/18 11/09/18 05:59 05:59 05:59 Intake Total 899.8 1354 Output Total 800 1150 Balance 99.8 204 Physical Exam - Physical Exam General Appearance: no apparent distress, obtunded EENT: PERRL/EOMI Neck: supple Respiratory: lungs clear, normal breath sounds, decreased breath sounds, No respiratory distress, No accessory muscle use Cardiac/Chest: regular rate, rhythm, No edema Abdomen: non-tender, soft, No distended Skin: normal color, warm/dry, No cyanosis Lymphatic: no adenopathy Extremities: No pedal edema Neuro/Psych: cognition abnormalities (no commands) ICD10 Worksheet Patient Problems: Problems Problem Status Onset DKA (diabetic ketoacidoses) Acute Leukocytosis Acute Nausea and vomiting Acute Dehydration Acute Vomiting Acute
[2018-11-08] MEDS: PROPOFOL/EMULSION 100 ML IV SCH (16:41)
[2018-11-09] MEDS: DEXAMETHASONE 4 MG/ML VIAL IVP SCH ×3 (00:29→11:32)
[2018-11-09] MEDS: LABETALOL HCL 200 MG TAB PO SCH ×2 (05:41→15:07)
[2018-11-09] MEDS ORDERED: POTASSIUM Cl (KCl) 50 ML IV ONE (07:54)
[2018-11-09] MEDS: INSULIN GLARGINE 100 UNITS/ML UNIT SC SCH (07:57)
[2018-11-09] MEDS: LISINOPRIL 10 MG TAB PO SCH (07:58)
[2018-11-09] MEDS: levETIRAcetam 1000MG/NACL 100 ML IV SCH (07:58)
[2018-11-09] MEDS: INSULIN REGULAR HUMAN 100 UNIT/ML UNIT SC SCH ×2 (07:58→11:32)
[2018-11-09] MEDS: FAMOTIDINE 20 MG TAB PO SCH (07:59)
[2018-11-09] MEDS: ENOXAPARIN 40 MG/0.4 ML SYR SC SCH (07:59)
--- NOTE | 2018-11-09 08:02 | NEUSURGPN ---
Assessment/Plan: Informed from RN (Jen) that family/medical POA has chosen comfort care/ palliative care. NS to sign off. Dr Wilson notified and in agreement Please call NS with any changes/questions. Catheter Insertion Date: 11/04/18 Neurosurgery Physical Exam - Vitals, I&O, Labs I and O 11/08/18 11/09/18 11/10/18 05:59 05:59 05:59 Intake Total 1354 1783 Output Total 1150 775 Balance 204 1008 Weight 51.2 kg Intake: IV Intake (ml) 601 444 IV Infused (ml) 104 413 Meropenem 2 gm In Ns 100 304 ml @ 120 mls/hr IV Q8HRS MIKE Rx#:[id number] Propofol/Emulsion 100 ml 104 109 @ Per Protocol IV CONT MIKE Rx#:[id number] Tube Feeding (ml) 379 676 Tube Flush (ml) 270 250 Output: Urine (ml) 1150 775 Catheter 1150 775 Microbiology 11/05/18 14:50 Gram Stain - Final Cerebral Spinal Fluid CSF Culture - Final Streptococcus Intermedius 11/02/18 17:10 Blood Culture - Final Blood 11/02/18 17:15 Blood Culture - Final Blood Vital Signs Temp Pulse Resp BP Pulse Ox 36.4 C 71 20 125/75 H 100 11/09/18 07:52 11/09/18 07:52 11/09/18 07:52 11/09/18 07:52 11/09/18 07:52 Laboratory Results 11/06/18 04:45 11/09/18 03:55 ICD10 Worksheet Patient Problems: Problems Problem Status Onset DKA (diabetic ketoacidoses) Acute Leukocytosis Acute Nausea and vomiting Acute Dehydration Acute Vomiting Acute
[2018-11-09] MEDS: PROPOFOL/EMULSION 100 ML IV SCH (09:26)
[2018-11-09] MEDS: LORazepam 2 MG/ML INJ IVP PRN ×2 (14:02→16:08)
--- NOTE | 2018-11-09 14:36 | ASMTDCNOTE ---
Case Management Discharge Discharge Order Complete? Answers: Yes Patient to Obtain Answers: Other Notes: [facility] Medications Transportation Arranged Answers: [facility] will Pick (Date 11/09/2018 04:00 PM & Time) Case Management Transport Answers: Yes Form Complete Faxed Final Orders Answers: Yes Agency/Facility Transfer Answers: Yes Report Printed & Faxed to Receiving Agency Family Notified Answers: Yes Discharge Comments Notes: Pt [facility] to [facility] for discharge today at 1600. Pt was extubated and is on 2L O2. Rena from [facility] notified and dc ppwk submit via [employer]. Stephanie (Shaista), pt's MDPOA at bedside, and supportive of her wishes. IM signed and completed. No other CM needs identifed at this time. Date Signed: 11/09/2018 02:36 PM Electronically Signed By:JAZMYN Rivera
--- NOTE | 2018-11-09 15:26 | ASDISCHSUM ---
Discharge Information Plan Status:Hospice-Inpatient Medically Cleared to Leave: Discharge Date: D/C Disposition: ADT D/C Disposition: Projected Discharge Date:11/09/2018 11:00 AM Transportation at D/C: Discharge Delay Reason: Follow-Up Date:11/09/2018 11:00 AM Discharge Slot: Final Diagnosis: Placement Information Referral Type:*Hospice Referral ID:[id number] Provider [facility] Address 1:[address] Address 2: City:[place] Selection Factors: State:[place] Patient Contact Information Contact Name:KAMERON Relationship:Friend Address: City: [facility] Phone: [facility] Code: Email: Financial Information Financial Class:Medicare Advantage Plans Primary Plan Desc:[employer] MED[employer]ARE ADV IP Primary Plan Number:[id number] Secondary Plan Desc:[place] Secondary Plan Number:[id number] Assessment Information LACE LACE Length of stay for Answers: 7-13 days current admission Acuity / Level of Answers: Yes Care: Did the patient have an inpatient admission? Comorbidities - select Answers: Diabetes (uncontrolled or all that apply controlled) # of Emergency department Answers: 1-2 visits in the last 6 months Social determinants Answers: Lack of community resources and/or lack of social support (no pcp, lives alone, transportation, soy d) Score: 14 Date Signed: 11/09/2018 03:25 PM Electronically Signed By:JAZMYN Rivera [facility] Initial CM Assessment Living Arrangements What is your living Answers: Alone arrangement? Who do you live with? Type Of Residence What kind of residence do Answers: Apartment you live in? Discharge Plan Comments Coordination Status Comments Notes: Patient is a 68yo single female with Type II diabetes only on Metformin presenting with 2 days of nausea and vomiting. Patient has been admitted for diabetic ketoacidosis, pulmonary abscess. Patient lives at [facility] in independent living. PT/OT have been ordered for the patient. D/C plan TBD.CM will follow. Date Signed: 11/04/2018 01:18 PM Electronically Signed By:Randa Durbin LCSW [facility] CM Progress Note CM Note CM Note Notes: Spoke with [facility] who called about patient's progress. They would like to stay informed since the patient is in independent living and may need a higher level of care. Roma ([phone]) is the resident coordinator and director of social media marketing and contact at [facility]. PT is recommending home health care. Patient has [employer] insurance and so we will need to coordinate with [facility] ([phone]) home health care. Patient is delirious today so the conversation will have to happen at a later date. CM will follow. Date Signed: 11/04/2018 01:27 PM Electronically Signed By:Randa Durbin LCSW [facility] CM Progress Note CM Note CM Note Notes: Patient's clinical status continues to worsen. She is currently intubated/sedated. Tube feeds. Dr Love spoke with her friends/family yesterday and expressed that her prognosis is uncertain. It's too early to begin d/c planning. Case Management will follow. Date Signed: 11/07/2018 02:31 PM Electronically Signed By:Juanita Holguin RN Case Management Discharge Plan Note Case Management Discharge Discharge Order Complete? Answers: Yes Patient to Obtain Answers: Other Notes: [facility] Medications Transportation Arranged Answers: [facility] will Pick (Date 11/09/2018 04:00 PM & Time) Case Management Transport Answers: Yes Form Complete Faxed Final Orders Answers: Yes Agency/Facility Transfer Answers: Yes Report Printed & Faxed to Receiving Agency Family Notified Answers: Yes Discharge Comments Notes: Pt was referred to [facility] hospice and accepted at the [facility] for discharge today at 1600. Pt was extubated and is on 2L O2. Rena from [facility] notified and dc ppwk submit via [employer]. Stephanie Thurston), pt's MDPOA at bedside, and supportive of her wishes. IM signed and completed. No other CM needs identifed at this time. Date Signed: 11/09/2018 02:36 PM Electronically Signed By:JAZMYN Rivera Intervention Information Intervention Type:*IM-Signed Date of Service:11/09/2018 02:58 PM Patient Type:Inpatient Staff Member:Suzy Mcdonnell Hours: Discipline: Severity: Comment:
--- NOTE | 2018-11-09 15:29 | PDDCSUM ---
Discharge Summary Discharge Summary: Date of Admission: 11/02/2018 Date of Discharge: 11/09/2018 Consults: Neurosurgery, ID, Critical Care, Neurology Procedures: Head CT, LP Followup: Hospice Hospital Course Problem List: Acute bacterial meningitis -subacute presentation - was probably driving her DKA presentation - LP culture growing strep intermedius (notorious for abscess formation) -immunosuppressed due to uncontrolled DM - contrast CT w likely pus in ventricles, multifocal infarcts vs abscesses or both - Seen by ID changed from Meropenum to Ceftriaxone - Seen by Neurology, recommended continuing antiepileptics - Seen by Neurosurgery, family has decided to make patient comfort care based on her advanced directive DKA resolved on glargine/lispro Acute respiratory failure -Intubated, plan for palliative extubation this afternoon Septic shock- In setting of meningitis as above off pressors Seizure -Keppra -Neurology consulted, appreciate recs Hypokalemia - severe -repleted, K 3.8 this AM Pleural based mass vs infection (necrosis vs. abscess vs. empyema) -refused bronch - Abx as above Metabolic encephalopathy -severe as above - due to meningitis Urinary retention - >1L in bladder -now with baez HTN -Started Lisinopril Time spent on discharge was >35 minutes with >50% of time spent on patient and family education and counseling.
[2018-11-09 16:08] VITALS: BP 142/84
--- NOTE | 2018-11-16 07:42 | PQFORM ---
PHYSICIAN QUERY FORM Needs Your Response This query form is being sent to you to assure this patient record is coded properly. Please respond to the question below: PERSONAL ASSISTANT QUESTION: Dr Godinez A nutritional assessment of Severe Protein Calorie Malnutrition was made by RD Risk Factors: Cachetic, BMI 18.5, uncontrolled DM/DKA Bacterial meningitis now intubated. Treatment: EN to begin per MD, okay to start at ~20ml/hr via OGT, RD to follow EN at ICU rounds daily, full F/U 11/08. This doesn't appear to be addressed in the summary. Do you agree with the diagnosis of Sever Protein Calorie Malnutrition? __ Yes __ No __ Other (Please Specify ) __ Unable to Determine Thank You Urszula [employer] Accounting Tutor INSTRUCTIONS FOR RESPONSE: Answer question by clicking on the "Edit Document" button. Move cursor to area below the stars. When complete, hit "Save." Click on the "Sign" button, then click "Sign" again. Type in your PIN and hit "Enter." Yes I agree with the diagnosis of Severe Protein Calorie Malnutrition. Thank you MARKIE
== END 2018-11-09 16:25 | disposition hospice, home (50) | DRG 871 ==
LOC: F2N 12:39
PROVIDERS: ADMIT Hospitalist; ATTEND Hospitalist
PROC: 009U3ZX Drainage of Spinal Canal, Percutaneous Approach, Diagnostic (ICD-10-PCS; principal; 2018-11-05)
PROC: 5A1945Z Respiratory Ventilation, 24-96 Consecutive Hours (ICD-10-PCS; 2018-11-05)
PROC: 0BH18EZ Insertion of Endotracheal Airway into Trachea, Via Natural or Artificial Opening Endoscopic (ICD-10-PCS; 2018-11-05)
PROC: 02H633Z Insertion of Infusion Device into Right Atrium, Percutaneous Approach (ICD-10-PCS; 2018-11-05)
DX: A40.9 Streptococcal sepsis, unspecified (principal); R65.20 Severe sepsis without septic shock; G00.2 Streptococcal meningitis; E11.10 Type 2 diabetes mellitus with ketoacidosis without coma; J96.00 Acute respiratory failure, unspecified whether with hypoxia or hypercapnia; G92 Toxic encephalopathy; E43 Unspecified severe protein-calorie malnutrition; R56.9 Unspecified convulsions; E87.1 Hypo-osmolality and hyponatremia; E87.6 Hypokalemia; R33.9 Retention of urine, unspecified; R91.8 Other nonspecific abnormal finding of lung field; E87.2 Acidosis; D72.829 Elevated white blood cell count, unspecified; I10 Essential (primary) hypertension; Z66 Do not resuscitate
CPT/HCPCS: 82435-PO; 82565-PO; 82947-PO; 82947-QW; 84132-PO; 84295-PO; 84520-PO; 85014-ER; 96374; 97116-GP; 97161-GP; 97166-GO; 97530-GP; G0480; J0295; J0360; J0696; J1100; J1450; J1650; J1815; J1953; J2060; J2185; J2270; J2370; J2405; J2704; J2765; J3370; J3480; Q9967